=== PATIENT | male | born 1980 | race African-American/Black ===

== ENCOUNTER 2017-05-31 14:51 | Emergency (ER) | payer MEDICAID ==
[2017-05-31 18:04] LABS: Hematocrit 46 % (42-52); Hemoglobin 15.3 g/dl (14.0-18.0); Mean Corpuscular HGB Conc 33 g/dl (31-36); Mean Corpuscular Hemoglobin 29 pg (27-31); Mean Corpuscular Volume 88 fL (80-94); Mean Platelet Volume 8 um3 (7.4-10.4); Red Blood Count 5.24 10^6/ul (4.0-5.4); Red Cell Distribution Width 15 % (10.5-15)
[2017-05-31 18:07] LABS: Urine Bilirubin Negative (Negative); Urine Glucose Negative (Negative); Urine Nitrite Negative (Negative)
[2017-05-31 18:16] LABS: BUN/Creatinine Ratio 8.3 (8-20); C Reactive Protein 27.34 mg/L (< 5.00); Calcium 9.3 mg/dL (8.6-10.3); EGFR African American 88.1 (>60); EGFR Non-African American 68.5 (>60); Globulin 3.2 g/dL (2-4); Potassium 4.6 mmol/L (3.5-5.0); Total Bilirubin 0.5 mg/dL (0.2-1.0); Total Protein 7.2 g/dL (6.4-8.9)
[2017-05-31] MEDS ORDERED: Morphine INJ* 4 MG/ML 1 ML CARPUJECT IV ONE ×2 (18:36)
[2017-05-31] MEDS ORDERED: Ondansetron INJ* 2 MG/ML VIAL IV ONE (18:36)
[2017-05-31] MEDS: Ketorolac INJ* 30 MG/ML 1 ML VIAL IV PUSH ONE ×2 (18:46→19:21)
[2017-05-31] MEDS ORDERED: diPHENhydraMINE IV* 50 MG/ML 1 ml VIAL (BENADRYL) IV ONE (18:52)
[2017-05-31] MEDS ORDERED: diPHENhydraMINE IV* 50 MG/ML 1 ml VIAL (BENADRYL) ONE ×2 (18:53)
--- NOTE | 2017-05-31 19:37 | RAD ---
INDICATION: LEFT lower quadrant and flank pain for 2 weeks. COMPARISON: No relevant prior exams available on the [facility] PACS for comparison. TECHNIQUE: Multidetector CT images were obtained from the lung bases to the ischial tuberosities. Evaluation of the viscera is limited without IV contrast. Multiplanar reformation. REPORT: Unremarkable visualized inferior thorax. Negative for CT abnormality of the unenhanced liver, gallbladder, pancreas, spleen. Negative for CT abnormality of the upper GI or small bowel. Unremarkable retrocecal/infra cecal appendix. Moderate colonic diverticulosis. Moderate perienteric inflammatory change at the level of the distal descending colon seen in association with diverticula most consistent with acute diverticulitis. No perienteric abscess or free air. Only trace LEFT lower quadrant fluid. Negative for hernias. Normal adrenal glands. Unremarkable kidneys ureters, and urinary bladder. Symmetric seminal vesicles. Upper normal 1 cm short axis LEFT common femoral level lymph node. Negative for lymphadenopathy. Normal diameter abdominal aorta and iliac arteries. Physiologic distention of the IVC. Negative for suspicious osseous lesions. IMPRESSION: Acute diverticulitis at the descending colon. No perienteric abscess or resulting bowel obstruction. Follow-up after therapy suggested to assess for resolution.
[2017-05-31] MEDS ORDERED: Ciprofloxacin TAB* 500 MG PO ONE (20:24)
[2017-05-31] MEDS ORDERED: metroNIDAZOLE TAB* 250 MG PO ONE (20:24)
--- NOTE | 2017-05-31 20:28 | ED ---
GI/ HPI - HPI Summary HPI Summary: 36M presents with LLQ pain since last night. He denies any diarrhea or constipation. No nausea or vomiting. admits to anorexia but states that his appetite has been returning. He has never had this pain before. No previous abdominal surgeries. No history of diverticulitis or kidney stones. took advil this morning. pain radiates to left flank pain. no dysuria, hematuira, frequency, or urgency. - History of Current Complaint Chief Complaint: EDAbdPain Time Seen by Provider: 05/31/17 18:21 Stated Complaint: ABD PAIN Pain Intensity: 7 - Allergy/Home Medications Allergies/Adverse Reactions: Allergies Allergy/AdvReac Type Severity Reaction Status Date / Time No Known Allergies Allergy Verified 02/09/16 13:43 PMH/Surg Hx/FS Hx/Imm Hx Endocrine/Hematology History: Denies: Hx Anticoagulant Therapy Respiratory History: Reports: Hx Asthma - Surgical History Surgery Procedure, Year, and Place: ED NOTES: LLQ abdominal pain. passing isadora and had a b.m. without improvement. denies med/surg abdominal hx. [ End ] Infectious Disease History: No Infectious Disease History: Denies: History Other Infectious Disease, Traveled Outside the [place] in Last 30 Days - Family History Known Family History: Positive: Other - ULCERS, CANCER Family History: NON CONTRIBUTORY - Social History Alcohol Use: Occasionally Hx Substance Use: Yes Substance Use Type: Reports: Marijuana Hx Tobacco Use: Yes Smoking Status (MU): Light Every Day Tobacco Smoker Review of Systems Negative: Fever Negative: Chest Pain Negative: Shortness Of Breath Positive: Abdominal Pain. Negative: Vomiting, Diarrhea, Nausea All Other Systems Reviewed And Are Negative: Yes Physical Exam Triage Information Reviewed: Yes Vital Signs On Initial Exam: Initial Vitals Temp Pulse Resp BP Pulse Ox 98.1 F 79 20 140/88 99 05/31/17 14:54 05/31/17 14:54 05/31/17 14:54 05/31/17 14:54 05/31/17 14:54 Vital Signs Reviewed: Yes Appearance: Positive: Pain Distress Skin: Positive: Warm, Dry Head/Face: Positive: Normal Head/Face Inspection Eyes: Positive: Normal, EOMI, CLIF, Conjunctiva Clear ENT: Positive: Normal ENT inspection, Pharynx normal, TMs normal Respiratory/Lung Sounds: Positive: Clear to Auscultation, Breath Sounds Present Cardiovascular: Positive: Normal, RRR Abdomen Description: Positive: Soft, CVA Tenderness (L), Other: - LLQ tenderness , no rebound Bowel Sounds: Positive: Present Musculoskeletal: Positive: Normal Neurological: Positive: Normal - Oliver Coma Scale Coma Scale Total: 15 Diagnostics - Vital Signs Vital Signs Temp Pulse Resp BP Pulse Ox 05/31/17 20:00 76 98 05/31/17 19:30 75 149/91 98 05/31/17 19:23 147/94 05/31/17 19:00 81 99 05/31/17 18:46 22 05/31/17 18:32 77 98 05/31/17 18:30 146/88 05/31/17 14:54 98.1 F 79 20 140/88 99 - Laboratory Lab Results: Lab Results 05/31/17 05/31/17 05/31/17 Range/Units 16:30 16:30 16:30 WBC 9.0 (3.5-10.8) 10^3/ul RBC 5.24 (4.0-5.4) 10^6/ul Hgb 15.3 (14.0-18.0) g/dl Hct 46 (42-52) % MCV 88 (80-94) fL MCH 29 (27-31) pg MCHC 33 (31-36) g/dl RDW 15 (10.5-15) % Plt Count 204 (150-450) 10^3/ul MPV 8 (7.4-10.4) um3 Neut % (Auto) 62.1 (38-83) % Lymph % (Auto) 27.4 (25-47) % [place] % (Auto) 8.1 (1-9) % Eos % (Auto) 1.7 (0-6) % Baso % (Auto) 0.7 (0-2) % Absolute Neuts (auto) 5.6 (1.5-7.7) 10^3/ul Absolute Lymphs (auto) 2.5 (1.0-4.8) 10^3/ul Absolute Monos (auto) 0.7 (0-0.8) 10^3/ul Absolute Eos (auto) 0.2 (0-0.6) 10^3/ul Absolute Basos (auto) 0.1 (0-0.2) 10^3/ul Absolute Nucleated RBC 0.02 10^3/ul Nucleated RBC % 0.2 Sodium 136 (133-145) mmol/L Potassium 4.6 (3.5-5.0) mmol/L Chloride 101 (101-111) mmol/L Carbon Dioxide 33 H (22-32) mmol/L Anion Gap 2 (2-11) mmol/L BUN 10 (6-24) mg/dL Creatinine 1.20 H (0.67-1.17) mg/dL Est GFR ( Amer) 88.1 (>60) Est GFR (Non-Af Amer) 68.5 (>60) BUN/Creatinine Ratio 8.3 (8-20) Glucose 97 (70-100) mg/dL Lactic Acid 0.7 (0.5-2.0) mmol/L Calcium 9.3 (8.6-10.3) mg/dL Total Bilirubin 0.50 (0.2-1.0) mg/dL AST 18 (13-39) U/L ALT 17 (7-52) U/L Alkaline Phosphatase 70 (34-104) U/L C-Reactive Protein 27.34 H (< 5.00) mg/L Total Protein 7.2 (6.4-8.9) g/dL Albumin 4.0 (3.2-5.2) g/dL Globulin 3.2 (2-4) g/dL Albumin/Globulin Ratio 1.3 (1-3) Lipase 26 (11.0-82.0) U/L Urine Color Urine Appearance Urine pH (5-9) Ur Specific [place] (1.010-1.030) Urine Protein (Negative) Urine Ketones (Negative) Urine Blood (Negative) Urine Nitrate (Negative) Urine Bilirubin (Negative) Urine Urobilinogen (Negative) Ur Leukocyte Esterase (Negative) Urine Glucose (Negative) 05/31/17 Range/Units 16:30 WBC (3.5-10.8) 10^3/ul RBC (4.0-5.4) 10^6/ul Hgb (14.0-18.0) g/dl Hct (42-52) % MCV (80-94) fL MCH (27-31) pg MCHC (31-36) g/dl RDW (10.5-15) % Plt Count (150-450) 10^3/ul MPV (7.4-10.4) um3 Neut % (Auto) (38-83) % Lymph % (Auto) (25-47) % [place] % (Auto) (1-9) % Eos % (Auto) (0-6) % Baso % (Auto) (0-2) % Absolute Neuts (auto) (1.5-7.7) 10^3/ul Absolute Lymphs (auto) (1.0-4.8) 10^3/ul Absolute Monos (auto) (0-0.8) 10^3/ul Absolute Eos (auto) (0-0.6) 10^3/ul Absolute Basos (auto) (0-0.2) 10^3/ul Absolute Nucleated RBC 10^3/ul Nucleated RBC % Sodium (133-145) mmol/L Potassium (3.5-5.0) mmol/L Chloride (101-111) mmol/L Carbon Dioxide (22-32) mmol/L Anion Gap (2-11) mmol/L BUN (6-24) mg/dL Creatinine (0.67-1.17) mg/dL Est GFR ( Amer) (>60) Est GFR (Non-Af Amer) (>60) BUN/Creatinine Ratio (8-20) Glucose (70-100) mg/dL Lactic Acid (0.5-2.0) mmol/L Calcium (8.6-10.3) mg/dL Total Bilirubin (0.2-1.0) mg/dL AST (13-39) U/L ALT (7-52) U/L Alkaline Phosphatase (34-104) U/L C-Reactive Protein (< 5.00) mg/L Total Protein (6.4-8.9) g/dL Albumin (3.2-5.2) g/dL Globulin (2-4) g/dL Albumin/Globulin Ratio (1-3) Lipase (11.0-82.0) U/L Urine Color Yellow Urine Appearance Clear Urine pH 6.0 (5-9) Ur Specific [place] 1.021 (1.010-1.030) Urine Protein Negative (Negative) Urine Ketones Negative (Negative) Urine Blood Negative (Negative) Urine Nitrate Negative (Negative) Urine Bilirubin Negative (Negative) Urine Urobilinogen Negative (Negative) Ur Leukocyte Esterase Negative (Negative) Urine Glucose Negative (Negative) Result Diagrams: 05/31/17 16:30 05/31/17 16:30 Lab Statement: Any lab studies that have been ordered have been reviewed, and results considered in the medical decision making process. - CT abd CT Interpretation: Positive (See Comments) - IMPRESSION: Acute diverticulitis at the descending colon. No perienteric abscess or resulting bowel obstruction. Follow-up after therapy suggested to assess for resolution. CT Interpretation Completed By: Radiologist MADYSON Course/Dx - Course Course Of Treatment: 36M presents with LLQ pain since last night. He denies any diarrhea or constipation. No nausea or vomiting. admits to anorexia but states that his appetite has been returning. He has never had this pain before. No previous abdominal surgeries. No history of diverticulitis or kidney stones. took advil this morning. pain radiates to left flank pain. no dysuria, hematuira, frequency, or urgency. on exam tenderness LLQ, CVA tenderness left, labs normal. CT shows diverticulitis. will treat with cipro and flagyl. patient understands and agrees with plan. - Diagnoses Differential Diagnoses - Male: Diverticulosis, Ureteral Calculi, Urinary Tract Infection, Other - diverticulitis Provider Diagnoses: Diverticulitis Discharge - Discharge Plan Condition: Good Disposition: HOME Prescriptions: Ciprofloxacin TAB* [Cipro 500 MG TAB*] 500 mg PO BID #27 tab Metronidazole [Flagyl 500 MG TAB] 500 mg PO BID #27 tab Patient Education Materials: Diverticulitis (ED) Referrals: [facility] [Outside] Additional Instructions: Take ciprofloxacin twice a day for 14 days, first dose given in ED Take Flagyl twice a day for 14 days, first dose given in ED Take Zofran every 6 hours for nausea Take Tylenol or ibuprofen every 6 hours for nausea Follow clear liquid diet until symptoms improve Return to ED if unable to keep anything down, develop fever, or any new or worsening symptoms
[2017-05-31 20:41] VITALS: BP 157/92
== END 2017-05-31 20:43 | disposition home or self-care (01) ==
LOC: ED 14:51
DX: K57.92 Diverticulitis of intestine, part unspecified, without perforation or abscess without bleeding (principal); R10.32 Left lower quadrant pain; F17.210 Nicotine dependence, cigarettes, uncomplicated
CPT/HCPCS: 36415; 74176; 80053; 81003; 83605; 83690; 85025; 86140; 96374; 96375; 99283; A9270-GY; J1200; J1885; J2270; J2405

== ENCOUNTER 2017-08-17 10:54 | Emergency (ER) | payer MEDICAID ==
[2017-08-17] MEDS ORDERED: metroNIDAZOLE IV 500 MG/100ML* 500 MG/100 ML BAG IVPB ONE (11:19)
[2017-08-17] MEDS ORDERED: Ciprofloxacin IV(*) 400 MG in D5W 250 ML BAG* 160 ML IVPB ONE (11:19)
[2017-08-17] MEDS ORDERED: Morphine INJ* 4 MG/ML 1 ML CARPUJECT IV ONE (11:19)
[2017-08-17] MEDS ORDERED: HYDROmorphone INJ* 1 MG/ML CARPUJECT SYRINGE IV SLOW PU ONE (11:38)
[2017-08-17 11:54] LABS: ABS Basophils 0.1 10^3/ul (0-0.2); ABS Eosinophils 0.1 10^3/ul (0-0.6); ABS Lymphocytes 1.8 10^3/ul (1.0-4.8); ABS Monocytes 0.6 10^3/ul (0-0.8); ABS Nucleated RBC 0 10^3/ul; Eosinophil % 0.8 % (0-6); Hematocrit 48 % (42-52); Hemoglobin 16.2 g/dl (14.0-18.0); Lymphocyte % 21.1 % (25-47); Mean Corpuscular HGB Conc 34 g/dl (31-36); Mean Corpuscular Hemoglobin 29 pg (27-31); Mean Corpuscular Volume 86 fL (80-94); Mean Platelet Volume 7 um3 (7.4-10.4); Nucleated Red Blood Cells % 0; Platelet Count 210 10^3/ul (150-450); Red Blood Count 5.59 10^6/ul (4.0-5.4); Red Cell Distribution Width 15 % (10.5-15); White Blood Count 8.5 10^3/ul (3.5-10.8)
[2017-08-17] MEDS ORDERED: Ciprofloxacin 400MG IVPREMIX(* 400 MG/200 ML BAG IVPB ONE (12:00)
[2017-08-17 12:07] LABS: Urine Appearance Clear; Urine Blood Negative (Negative); Urine Color Yellow; Urine Ketones Negative (Negative); Urine Protein Negative (Negative); Urine Specific Gravity 1.023 (1.010-1.030); Urine Urobilinogen Negative (Negative)
[2017-08-17 12:14] LABS: EGFR Non-African American 87.6 (>60)
--- NOTE | 2017-08-17 13:01 | ED ---
Blue Schwab Gabriel, scribed for Sony Portillo MD on 08/17/17 at 1115 . Abdominal Pain/Male - HPI Summary HPI Summary: This patient is a 36 year old M presenting to [facility] with a chief complaint of ABD pain since 08/07/17. The patient rates the pain 7/10 in severity located in the suprapubic region. Patient reports yellow vomiting, fever, right sided shoulder pain (chronic), and nausea. Patient denies urinary symptoms. Two months ago he was diagnosed with diverticulosis and has been trying to avoid foods that would irritate it. He didnt finish his Cipro previously and took a dose at 0700 this morning. The last meal he ate was last night and consisted of soup and hot dogs. - History of Current Complaint Chief Complaint: EDAbdPain Stated Complaint: ABD PAIN Time Seen by Provider: 08/17/17 11:07 Hx Obtained From: Patient Onset/Duration: Lasting Days - 10, Still Present Timing: Constant Severity Initially: Moderate Severity Currently: Moderate Pain Intensity: 7 Pain Scale Used: 0-10 Numeric Location: Diffuse, Discrete At: LLQ, Suprapubic Radiates: No Associated Signs And Symptoms: Positive: Negative - urinary symptoms, Other - yellow vomiting, fever, and nausea - Allergies/Home Medications Allergies/Adverse Reactions: Allergies Allergy/AdvReac Type Severity Reaction Status Date / Time Morphine Allergy Hives Verified 08/17/17 11:32 PMH/Surg Hx/FS Hx/Imm Hx Previously Healthy: No Endocrine/Hematology History: Denies: Hx Anticoagulant Therapy Respiratory History: Reports: Hx Asthma GI History: Reports: Hx Diverticulosis - Surgical History Surgery Procedure, Year, and Place: ED NOTES: LLQ abdominal pain. passing isadora and had a b.m. without improvement. denies med/surg abdominal hx. [ End ] Infectious Disease History: No Infectious Disease History: Denies: History Other Infectious Disease, Traveled Outside the [place] in Last 30 Days - Family History Known Family History: Positive: Other - ULCERS, CANCER Family History: colon cancer - Social History Occupation: Unemployed Alcohol Use: Daily - at night Hx Substance Use: Yes Substance Use Type: Reports: Marijuana Hx Tobacco Use: Yes Smoking Status (MU): Light Every Day Tobacco Smoker Review of Systems Positive: Fever Positive: Abdominal Pain, Vomiting, Nausea Positive: no symptoms reported All Other Systems Reviewed And Are Negative: Yes Physical Exam - Summary Physical Exam Summary: Appearance: Well appearing, no pain distress Skin: warm, dry, reflects adequate perfusion Head/face: normal Eyes: EOMI, CLIF ENT: normal Neck: supple, non-tender Respiratory: CTA, breath sounds present Cardiovascular: RRR, pulses symmetrical Abdomen: soft, mild diffuse tenderness, moderate tenderness at suprapubic and LLQ regions. Bowel: present Musculoskeletal: normal, strength/ROM intact, no CVA tenderness Neuro: normal, sensory motor intact, A&Ox3 Triage Information Reviewed: Yes Vital Signs On Initial Exam: Initial Vitals Temp Pulse Resp BP Pulse Ox 98.4 F 88 20 145/113 97 08/17/17 11:02 08/17/17 11:02 08/17/17 11:02 08/17/17 11:02 08/17/17 11:02 Vital Signs Reviewed: Yes Diagnostics - Vital Signs Vital Signs Temp Pulse Resp BP Pulse Ox 08/17/17 11:02 98.4 F 88 20 145/113 97 - Laboratory Lab Results: Lab Results 08/17/17 08/17/17 08/17/17 Range/Units 11:45 11:45 11:45 WBC 8.5 (3.5-10.8) 10^3/ul RBC 5.59 H (4.0-5.4) 10^6/ul Hgb 16.2 (14.0-18.0) g/dl Hct 48 (42-52) % MCV 86 (80-94) fL MCH 29 (27-31) pg MCHC 34 (31-36) g/dl RDW 15 (10.5-15) % Plt Count 210 (150-450) 10^3/ul MPV 7 L (7.4-10.4) um3 Neut % (Auto) 69.9 (38-83) % Lymph % (Auto) 21.1 L (25-47) % [place] % (Auto) 7.4 (1-9) % Eos % (Auto) 0.8 (0-6) % Baso % (Auto) 0.8 (0-2) % Absolute Neuts (auto) 6.0 (1.5-7.7) 10^3/ul Absolute Lymphs (auto) 1.8 (1.0-4.8) 10^3/ul Absolute Monos (auto) 0.6 (0-0.8) 10^3/ul Absolute Eos (auto) 0.1 (0-0.6) 10^3/ul Absolute Basos (auto) 0.1 (0-0.2) 10^3/ul Absolute Nucleated RBC 0 10^3/ul Nucleated RBC % 0 Sodium 132 L (133-145) mmol/L Potassium 4.3 (3.5-5.0) mmol/L Chloride 99 L (101-111) mmol/L Carbon Dioxide 28 (22-32) mmol/L Anion Gap 5 (2-11) mmol/L BUN 10 (6-24) mg/dL Creatinine 0.97 (0.67-1.17) mg/dL Est GFR ( Amer) 112.6 (>60) Est GFR (Non-Af Amer) 87.6 (>60) BUN/Creatinine Ratio 10.3 (8-20) Glucose 118 H (70-100) mg/dL Lactic Acid 1.0 (0.5-2.0) mmol/L Calcium 9.1 (8.6-10.3) mg/dL Total Bilirubin 0.60 (0.2-1.0) mg/dL AST 17 (13-39) U/L ALT 17 (7-52) U/L Alkaline Phosphatase 76 (34-104) U/L Total Protein 7.7 (6.4-8.9) g/dL Albumin 4.2 (3.2-5.2) g/dL Globulin 3.5 (2-4) g/dL Albumin/Globulin Ratio 1.2 (1-3) Lipase 17 (11.0-82.0) U/L Urine Color Urine Appearance Urine pH (5-9) Ur Specific [place] (1.010-1.030) Urine Protein (Negative) Urine Ketones (Negative) Urine Blood (Negative) Urine Nitrate (Negative) Urine Bilirubin (Negative) Urine Urobilinogen (Negative) Ur Leukocyte Esterase (Negative) Urine WBC (Auto) (Absent) Urine RBC (Auto) (Absent) Ur Squamous Epith Cells (Absent) Urine Bacteria (Absent) Urine Sperm (Absent) Urine Glucose (Negative) Urine Ascorbic Acid (Negative) 08/17/17 Range/Units 11:50 WBC (3.5-10.8) 10^3/ul RBC (4.0-5.4) 10^6/ul Hgb (14.0-18.0) g/dl Hct (42-52) % MCV (80-94) fL MCH (27-31) pg MCHC (31-36) g/dl RDW (10.5-15) % Plt Count (150-450) 10^3/ul MPV (7.4-10.4) um3 Neut % (Auto) (38-83) % Lymph % (Auto) (25-47) % [place] % (Auto) (1-9) % Eos % (Auto) (0-6) % Baso % (Auto) (0-2) % Absolute Neuts (auto) (1.5-7.7) 10^3/ul Absolute Lymphs (auto) (1.0-4.8) 10^3/ul Absolute Monos (auto) (0-0.8) 10^3/ul Absolute Eos (auto) (0-0.6) 10^3/ul Absolute Basos (auto) (0-0.2) 10^3/ul Absolute Nucleated RBC 10^3/ul Nucleated RBC % Sodium (133-145) mmol/L Potassium (3.5-5.0) mmol/L Chloride (101-111) mmol/L Carbon Dioxide (22-32) mmol/L Anion Gap (2-11) mmol/L BUN (6-24) mg/dL Creatinine (0.67-1.17) mg/dL Est GFR ( Amer) (>60) Est GFR (Non-Af Amer) (>60) BUN/Creatinine Ratio (8-20) Glucose (70-100) mg/dL Lactic Acid (0.5-2.0) mmol/L Calcium (8.6-10.3) mg/dL Total Bilirubin (0.2-1.0) mg/dL AST (13-39) U/L ALT (7-52) U/L Alkaline Phosphatase (34-104) U/L Total Protein (6.4-8.9) g/dL Albumin (3.2-5.2) g/dL Globulin (2-4) g/dL Albumin/Globulin Ratio (1-3) Lipase (11.0-82.0) U/L Urine Color Yellow Urine Appearance Clear Urine pH 5.0 (5-9) Ur Specific [place] 1.023 (1.010-1.030) Urine Protein Negative (Negative) Urine Ketones Negative (Negative) Urine Blood Negative (Negative) Urine Nitrate Negative (Negative) Urine Bilirubin Negative (Negative) Urine Urobilinogen Negative (Negative) Ur Leukocyte Esterase Trace H (Negative) Urine WBC (Auto) Trace(0-5/hpf) (Absent) Urine RBC (Auto) Trace(0-2/hpf) (Absent) Ur Squamous Epith Cells Present H (Absent) Urine Bacteria Absent (Absent) Urine Sperm Present H (Absent) Urine Glucose Negative (Negative) Urine Ascorbic Acid * H (Negative) Result Diagrams: 08/17/17 11:45 08/17/17 11:45 Lab Statement: Any lab studies that have been ordered have been reviewed, and results considered in the medical decision making process. Re-Evaluation - Re-Evaluation First Eval Re-Evaluation Time: 12:19 Change: Improved Comment: Patient is light headed due to his pain medication but his pain has improved. The patient was given a dose of IV antibiotics. Abdominal Pain Fem Course/Dx - Course Course Of Treatment: pt with hx of diverticulitis. Didnt complete abx course in May/Nov. Recurrent LLQ pain today. No fever or WBC elevation. Tx with IV abx here. Will not repeat CT at this juncture as pt is well appearing, nl labs etc. Continue outpt abx. May need colonscopy -- discussed this with pt, and there is some family hx of colon CA there. Pt states he is working on getting this done. He is unsure how old remote family member was. No first degree relative with ca. - Diagnoses Provider Diagnoses: Acute diverticulitis, Sprain of right rotator cuff capsule, Non compliance w medication regimen Discharge - Discharge Plan Condition: Good Disposition: HOME Prescriptions: Ciprofloxacin HCl [Cipro 500 MG TAB] 500 mg PO BID #20 tab Metronidazole [Flagyl 500 MG TAB] 500 mg PO TID #30 tab Naproxen [Naproxen 500 mg] 375 mg PO BID #10 tab Ondansetron HCl [Zofran 4 MG TAB] 4 mg PO TID PRN #12 tab PRN Reason: Nausea Patient Education Materials: Diverticulitis (ED) Referrals: [facility] [place] [facility] [Outside] Arline Lester MD [Medical Doctor] - Additional Instructions: Call orthopedics for follow up of your shoulder. For abdomen -- bland diet. Take full 10 day course of antibiotics. Avoid seeded foods. Return with fever, uncontrolled pain, worse or other concerns. The documentation as recorded by the Blue hennessy Gabriel accurately reflects the service I personally performed and the decisions made by me, Sony Portillo MD.
[2017-08-17] MEDS ORDERED: Ondansetron INJ* 2 MG/ML VIAL ONE (14:28)
[2017-08-17] MEDS ORDERED: Famotidine IV* 10 MG/ML 2 ML (20 mg) ONE (14:28)
[2017-08-17] MEDS ORDERED: Ondansetron INJ* 2 MG/ML VIAL IV ONE (14:30)
[2017-08-17] MEDS ORDERED: Famotidine IV* 10 MG/ML 2 ML (20 mg) IV SLOW PU ONE (14:30)
[2017-08-17 15:22] VITALS: BP 152/104
== END 2017-08-17 15:19 | disposition home or self-care (01) ==
LOC: ED 10:54
DX: S43.421A Sprain of right rotator cuff capsule, initial encounter (principal); R10.32 Left lower quadrant pain; F17.210 Nicotine dependence, cigarettes, uncomplicated; K57.92 Diverticulitis of intestine, part unspecified, without perforation or abscess without bleeding; X58.XXXA Exposure to other specified factors, initial encounter; Y93.9 Activity, unspecified; Y92.9 Unspecified place or not applicable
CPT/HCPCS: 36415; 80053; 81003; 81015; 83605; 83690; 85025; 87086; 96374; 96375; 99283; J0744; J1170; J2405; J3490

== ENCOUNTER 2018-05-01 11:00 | Emergency (ER) | payer MEDICAID, OTHER ==
[2018-05-01 12:13] LABS: Urine Appearance Clear; Urine Blood Negative (Negative); Urine Color Yellow; Urine Ketones Negative (Negative); Urine Protein Negative (Negative); Urine Specific Gravity 1.033 (1.010-1.030); Urine Urobilinogen Negative (Negative)
--- OUTSIDE RECORDS SUMMARY | 2018-05-01 12:13 | XMS REPORT ---
:1980 External Reference #:[id number] Author Organization [facility] Address [address] [place] [address] Phone [phone] Care Team Providers Name Role Phone Marker, Monisha Arauz PA-C Care Team Information Forensic Scientist Unavailable Marker, Monisha Arauz PA-C Primary Care Physician Unavailable Payers Type Date Identification Numbers Payment Provider Subscriber Health Maintenance Policy Number: [id number] [facility] (O) Ind. PayID: [id number] [address] [address] [place] [address] Problems Date Description Provider Status Onset: 03/22/2018 Allergy to other foods Tho Woodward MD Active Onset: 03/22/2018 Allergic urticaria Tho Woodward MD Active Family History Date Family Member(s) Problem(s) Comments General Unknown Social History Type Date Description Comments Smoke-Free Home is not smoke-free Pets None Smoking Patient is a current smoker, smokes every day Allergies, Adverse Reactions, Alerts Date Description Reaction Status Severity Comments 03/22/2018 NKDA active Medications Medication Date Status Form Strength Qnty SIG Indications Ordering Provider Albuterol 04/07/ Active Nebulizer (2.5mg/3M 150ml 1 vial Tiffany Sulfate 2017 L) 0.083% every 4h MAGEN Campbell as needed Claritin 03/22/ Active Tablets 10mg 30tab one L50.0 Christopher 2018 s tablet Lucinda Woodward MD by mouth every morning Zyrtec Allergy 03/22/ Active Tablets 10mg 30tab one L50.0 Christopher 2017 s tablet Lucinda Woodward MD by mouth every evening Ondansetron / Active Tablets 4mg Unknown 0000 Dispers Metronidazole / Active Tablets 500mg Unknown 0000 Qvar Redihaler / Active Aerosol 80mcg/Act Marker, 0000 Monisha SAVANAH Arauz Ciprofloxacin / Hx Tablets 500mg Unknown HCL 0000 - 2017 Vital Signs Date Vital Result Comment 04/07/2018 BP Systolic 118 mmHg BP Diastolic 84 mmHg Height 69 inches 5'9" Weight 265.00 lb BMI (Body Mass Index) 39.1 kg/m2 Heart Rate 96 /min Respiratory Rate 16 /min Body Temperature 96.4 F O2 % BldC Oximetry 66 % 03/22/2018 BP Systolic 139 mmHg BP Diastolic 98 mmHg Height 69 inches 5'9" Weight 265.38 lb BMI (Body Mass Index) 39.2 kg/m2 Heart Rate 78 /min Respiratory Rate 1895 /min Body Temperature 98.3 F O2 % BldC Oximetry 92 % Results Description No Information Procedures Date CPT Code Description Status 03/22/2018 48812 Allergy Tests Percutaneous W/ Allergenic Extracts Completed Encounters Type Date Location Provider CPT E/M Dx Office Visit 03/22/2018 10:[place] [address] L50.0 Z91.018 Plan of Care 03/22/2018 - Tho Woodward MDL50.0 Allergic urticariaNew Medication: Claritin 10 mgZyrtec Allergy 10 mgZ91.018 Allergy to other foods
[2018-05-01 12:32] LABS: ABS Basophils 0 10^3/ul (0-0.2); ABS Eosinophils 0.1 10^3/ul (0-0.6); ABS Lymphocytes 2.1 10^3/ul (1.0-4.8); ABS Monocytes 0.5 10^3/ul (0-0.8); ABS Neutrophils 3.3 10^3/ul (1.5-7.7); ABS Nucleated RBC 0 10^3/ul; Eosinophil % 2.1 % (0-6); Hematocrit 43 % (42-52); Hemoglobin 14.7 g/dl (14.0-18.0); Lymphocyte % 34.8 % (25-47); Mean Corpuscular HGB Conc 34 g/dl (31-36); Mean Corpuscular Hemoglobin 29 pg (27-31); Mean Corpuscular Volume 83 fL (80-94); Mean Platelet Volume 7.9 um3 (7.4-10.4); Nucleated Red Blood Cells % 0.3; Platelet Count 210 10^3/ul (150-450); Red Blood Count 5.15 10^6/ul (4.00-5.40); Red Cell Distribution Width 14 % (10.5-15)
[2018-05-01 13:01] LABS: EGFR Non-African American 90.3 (>60)
[2018-05-01] MEDS ORDERED: metFORMIN* 500 MG TAB PO ONE (14:17)
[2018-05-01 14:52] VITALS: BP 135/107
--- NOTE | 2018-05-01 15:24 | ED ---
HPI Diabetic - HPI Summary HPI Summary: Patient is a 37-year-old obese male presenting to the ED with chief complaint of bilateral lower extremity intermittent numbness and tingling and frequent urination over the past 6 months which has been continually worsening. History of hypertension and GERD for which he takes medications. Denies history of diabetes. He states he has a PCP, but has not seen them in several months. Denies any visual changes, headache, chest pain, shortness of breath, syncope or near syncope, abdominal pain. He states he urinated over 15 times yesterday which is not normal for him. States his diet is poor, but he is very active. - History Of Current Complaint Chief Complaint: EDGeneral Time Seen by Provider: 05/01/18 11:15 Hx Obtained From: Patient Onset/Duration: Gradual Onset Timing: Constant Severity Initially: Moderate Severity Currently: Moderate Character: Alert Aggravating: Nothing Associated Signs & Symptoms: Polyphagia, Polyuria Related History: Neuropathy - Risk Factors Cardiac Risk Factors: Negative CVA Risk Factor: Hypertension Serious Bact. Infect. Risk Factors (Meningitis/Sepsis/UTI): Negative - Allergies/Home Medications Allergies/Adverse Reactions: Allergies Allergy/AdvReac Type Severity Reaction Status Date / Time garlic Allergy Hives Verified 05/01/18 11:22 morphine Allergy Hives Verified 05/01/18 11:22 sweet potato Allergy Hives Verified 05/01/18 11:22 Home Medications: Home Medications Albuterol 2.5MG/3ML (0.083%)* [Ventolin 2.5 MG/3 ML NEB.BEBETO*] 2.5 mg INH Q4H PRN 05/01/18 [History Confirmed 05/01/18] Cetirizine* [ZyrTEC 10 MG TAB*] 10 mg PO QPM 05/01/18 [History Confirmed ] LoraTADine TAB(NF) [Claritin 10 MG TAB(NF)] 10 mg PO QAM 05/01/18 [History Confirmed 05/01/18] PMH/Surg Hx/FS Hx/Imm Hx Previously Healthy: Yes Endocrine/Hematology History: Denies: Hx Anticoagulant Therapy Respiratory History: Reports: Hx Asthma GI History: Reports: Hx Diverticulosis - Surgical History Surgery Procedure, Year, and Place: ED NOTES: LLQ abdominal pain. passing isadora and had a b.m. without improvement. denies med/surg abdominal hx. [ End ] - Immunization History Hx Pertussis Vaccination: No Immunizations Up to Date: Yes Infectious Disease History: No Infectious Disease History: Denies: History Other Infectious Disease, Traveled Outside the [place] in Last 30 Days - Family History Known Family History: Positive: Other - ULCERS, CANCER Family History: colon cancer - Social History Occupation: Employed Full-time Lives: With Family Alcohol Use: None Alcohol Amount: 1 drink daily Hx Substance Use: Yes Substance Use Type: Reports: Marijuana Hx Tobacco Use: Yes Smoking Status (MU): Former Smoker Review of Systems Constitutional: Negative Negative: Fever, Chills, Fatigue, Skin Diaphoresis Negative: Palpitations, Chest Pain Negative: Shortness Of Breath, Cough Negative: Abdominal Pain, Vomiting, Diarrhea, Nausea Genitourinary: Negative Positive: no symptoms reported, see HPI, other - polyuria Negative: Arthralgia, Myalgia Skin: Negative Positive: Paresthesia - bilateral lower ext. All Other Systems Reviewed And Are Negative: Yes Physical Exam Triage Information Reviewed: Yes Vital Signs On Initial Exam: Initial Vitals Temp Pulse Resp BP Pulse Ox 98.1 F 83 17 134/118 96 05/01/18 11:10 05/01/18 11:10 05/01/18 11:10 05/01/18 11:10 05/01/18 11:10 Vital Signs Reviewed: Yes Appearance: Positive: Well-Appearing, Well-Nourished Skin: Positive: Warm, Skin Color Reflects Adequate Perfusion Head/Face: Positive: Normal Head/Face Inspection Eyes: Positive: EOMI, CLIF, Conjunctiva Clear Neck: Positive: Supple, No Lymphadenopathy Respiratory/Lung Sounds: Positive: Clear to Auscultation, Breath Sounds Present Cardiovascular: Positive: RRR, Pulses are Symmetrical in both Upper and Lower Extremities Musculoskeletal: Positive: Normal, Strength/ROM Intact Neurological: Positive: Sensory/Motor Intact, Alert, Oriented to Person Place, Time, Speech Normal Psychiatric: Positive: Normal, Affect/Mood Appropriate Diagnostics - Vital Signs Vital Signs Temp Pulse Resp BP Pulse Ox 05/01/18 15:04 99.4 F 84 18 135/107 96 05/01/18 14:51 99.4 F 84 18 135/107 96 05/01/18 11:10 98.1 F 83 17 134/118 96 - Laboratory Lab Results: Lab Results 09/1005/01/18 05/01/18 Range/Units 11:59 12:25 12:25 WBC 6.0 (3.5-10.8) 10^3/ul RBC 5.15 (4.00-5.40) 10^6/ul Hgb 14.7 (14.0-18.0) g/dl Hct 43 (42-52) % MCV 83 (80-94) fL MCH 29 (27-31) pg MCHC 34 (31-36) g/dl RDW 14 (10.5-15) % Plt Count 210 (150-450) 10^3/ul MPV 7.9 (7.4-10.4) um3 Neut % (Auto) 55.2 (38-83) % Lymph % (Auto) 34.8 (25-47) % Bucks % (Auto) 7.7 H (0-7) % Eos % (Auto) 2.1 (0-6) % Baso % (Auto) 0.2 (0-2) % Absolute Neuts (auto) 3.3 (1.5-7.7) 10^3/ul Absolute Lymphs (auto) 2.1 (1.0-4.8) 10^3/ul Absolute Monos (auto) 0.5 (0-0.8) 10^3/ul Absolute Eos (auto) 0.1 (0-0.6) 10^3/ul Absolute Basos (auto) 0 (0-0.2) 10^3/ul Absolute Nucleated RBC 0 10^3/ul Nucleated RBC % 0.3 Sodium 132 L (135-145) mmol/L Potassium 4.5 (3.5-5.0) mmol/L Chloride 96 L (101-111) mmol/L Carbon Dioxide 29 (22-32) mmol/L Anion Gap 7 (2-11) mmol/L BUN 10 (6-24) mg/dL Creatinine 0.94 (0.67-1.17) mg/dL Est GFR ( Amer) 109.3 (>60) Est GFR (Non-Af Amer) 90.3 (>60) BUN/Creatinine Ratio 10.6 (8-20) Glucose 396 H (70-100) mg/dL Hemoglobin A1c (4.0-5.6) % Calcium 9.1 (8.6-10.3) mg/dL Total Bilirubin 0.50 (0.2-1.0) mg/dL AST 18 (13-39) U/L ALT 19 (7-52) U/L Alkaline Phosphatase 131 H (34-104) U/L C-Reactive Protein 19.57 H (<8.01) mg/L Total Protein 7.8 (6.4-8.9) g/dL Albumin 4.0 (3.2-5.2) g/dL Globulin 3.8 (2-4) g/dL Albumin/Globulin Ratio 1.1 (1-3) Urine Color Yellow Urine Appearance Clear Urine pH 6.0 (5-9) Ur Specific [place] 1.033 H (1.010-1.030) Urine Protein Negative (Negative) Urine Ketones Negative (Negative) Urine Blood Negative (Negative) Urine Nitrate Negative (Negative) Urine Bilirubin Negative (Negative) Urine Urobilinogen Negative (Negative) Ur Leukocyte Esterase Negative (Negative) Urine Glucose 3+(>=500 mg/dl) A (Negative) 05/01/18 Range/Units 12:25 WBC (3.5-10.8) 10^3/ul RBC (4.00-5.40) 10^6/ul Hgb (14.0-18.0) g/dl Hct (42-52) % MCV (80-94) fL MCH (27-31) pg MCHC (31-36) g/dl RDW (10.5-15) % Plt Count (150-450) 10^3/ul MPV (7.4-10.4) um3 Neut % (Auto) (38-83) % Lymph % (Auto) (25-47) % Bucks % (Auto) (0-7) % Eos % (Auto) (0-6) % Baso % (Auto) (0-2) % Absolute Neuts (auto) (1.5-7.7) 10^3/ul Absolute Lymphs (auto) (1.0-4.8) 10^3/ul Absolute Monos (auto) (0-0.8) 10^3/ul Absolute Eos (auto) (0-0.6) 10^3/ul Absolute Basos (auto) (0-0.2) 10^3/ul Absolute Nucleated RBC 10^3/ul Nucleated RBC % Sodium (135-145) mmol/L Potassium (3.5-5.0) mmol/L Chloride (101-111) mmol/L Carbon Dioxide (22-32) mmol/L Anion Gap (2-11) mmol/L BUN (6-24) mg/dL Creatinine (0.67-1.17) mg/dL Est GFR ( Amer) (>60) Est GFR (Non-Af Amer) (>60) BUN/Creatinine Ratio (8-20) Glucose (70-100) mg/dL Hemoglobin A1c 9.6 H (4.0-5.6) % Calcium (8.6-10.3) mg/dL Total Bilirubin (0.2-1.0) mg/dL AST (13-39) U/L ALT (7-52) U/L Alkaline Phosphatase (34-104) U/L C-Reactive Protein (<8.01) mg/L Total Protein (6.4-8.9) g/dL Albumin (3.2-5.2) g/dL Globulin (2-4) g/dL Albumin/Globulin Ratio (1-3) Urine Color Urine Appearance Urine pH (5-9) Ur Specific [place] (1.010-1.030) Urine Protein (Negative) Urine Ketones (Negative) Urine Blood (Negative) Urine Nitrate (Negative) Urine Bilirubin (Negative) Urine Urobilinogen (Negative) Ur Leukocyte Esterase (Negative) Urine Glucose (Negative) Result Diagrams: 05/01/18 12:25 05/01/18 12:25 Lab Statement: Any lab studies that have been ordered have been reviewed, and results considered in the medical decision making process. Diabetic Course/Dx - Course Course Of Treatment: During the course treatment, the patient is evaluated for frequent urination as well as bilateral peripheral neuropathy. He has never been worked up for diabetes in the past. He states his diet is poor, however he remains active. Labs obtained which are all WNL except for an elevated glucose at 396. A1c is 9.6. He is started on metformin 500 mg twice a day. He is also given the phone number to care connections and is encouraged to follow-up soon. He is given information for diet and exercise. - Diagnoses Differential Dx: Hyperglycemia, Hyperosmolar State Provider Diagnoses: Diabetes type 2, uncontrolled Discharge - Sign-Out/Discharge Documenting (check all that apply): Patient Departure - Discharge Plan Condition: Stable Disposition: HOME Prescriptions: metFORMIN* [Glucophage 500 MG TAB *] 500 mg PO BID #30 tab Patient Education Materials: Type 2 Diabetes in Adults: New Diagnosis (ED) Referrals: Monisha Andrew PA [Primary Care Provider] - Additional Instructions: [facility]: [phone] Call tomorrow to make an appt Take your first dose of metformin tomorrow AM Types of foods to avoid: Breads, starches, especially any white breads White rice Any type of fruit juice Any type of tomato sauce Any type of cream sauce Processed foods Fruits such as strawberries, peaches, bananas and melons Soda pop/fruit juices/vitamin diez Cereals Fried and fatty foods Fast food Potatoes/potato chips alcohol cookies/ice cream processed cheese Foods to eat: Eggs Avocado's Vegetables blueberries and raspberries Quinoa green apples Grapefruit yogurt (plain and full fat is best) and cottage cheese beans natural nut butters (low sugar) high quality protein/meats leafy greens coconut or almond milk salmon and tuna olive oil or avocado oil kale and cabbage Nuts crystal light feta cheese/goat cheese - Billing Disposition and Condition Condition: STABLE Disposition: Home
== END 2018-05-01 15:04 | disposition home or self-care (01) ==
LOC: ED 11:00
DX: E11.8 Type 2 diabetes mellitus with unspecified complications (principal); I10 Essential (primary) hypertension; Z87.891 Personal history of nicotine dependence; R20.0 Anesthesia of skin
CPT/HCPCS: 36415; 80053; 81003; 83036; 85025; 86140; 99282; A9270-GY

== ENCOUNTER 2018-06-08 07:16 | Emergency (ER) | payer OTHER ==
--- NOTE | 2018-06-08 07:39 | ED ---
Allergic Reaction/Systemic - HPI Summary HPI Summary: This patient is a 37 year old M presenting to [facility] with a chief complaint of a possible allergic reaction that occurred at 0630. As soon as he noticed this he walked to the ED. He c/o nausea, facial swelling, and the feeling of something stuck in his chest when he swallows. When he experienced this sensation he stuck his fingers in his throat and attempted to vomit but he was not successful. Although after forcing himself to vomit he had some throat tightness that has resolved. The patient rates the pain 0/10 in severity. Patient reports fatigue, labored breathing, and diffuse hives (that resolved after 10min). Patient denies CP, and SOB. This morning he took his medication with green tea but he has not eaten. The patient believes the his new medication PIOglitazone may have caused the effects. He states he has had issues in the past where when he tries to swallowing something he has to vomit it back up. He has also had episodes of hives without known causation several times in the past but after allergy test and new medication he states this has resolved. He has not taken Benadryl but did take a daily unknown allergy medication. Hx DM (recently dx), GERD, asthma. He states Dr. Robison ordered tests that he is wondering if he could get today, he is unsure what the tests are. He also states he has a perforated ear drum and is wondering if he could get medication for this - History of Current Complaint Chief Complaint: EDAllergicReaction Time Seen by Provider: 06/08/18 07:26 Hx Obtained From: Patient Onset/Duration: Started hours ago, Still Present Timing: Constant Severity Initially: Moderate Severity Currently: Moderate Pain Intensity: 0 Pain Scale Used: 0-10 Numeric Location: Diffuse Character: Swelling Associated Signs And Symptoms: Positive: Negative - vomiting, CP, and SOB, Other : - fatigue, labored breathing, and diffuse hives (that resolved after 10min) - Allergies/Home Medications Allergies/Adverse Reactions: Allergies Allergy/AdvReac Type Severity Reaction Status Date / Time garlic Allergy Hives Verified 06/08/18 07:22 morphine Allergy Hives Verified 06/08/18 07:22 sweet potato Allergy Hives Verified 06/08/18 07:22 Home Medications: Home Medications Cetirizine HCl [Allergy Relief] 10 mg PO DAILY 06/08/18 [History Confirmed 06/08] Cetirizine* [ZyrTEC 10 MG TAB*] 10 mg PO DAILY 06/08/18 [History Confirmed 06/08] Naproxen TAB* [Naprosyn 250 mg TAB*] 500 mg PO BID PRN 06/08/18 [History Confirmed 06/08/18] Omeprazole CAP* [Prilosec CAP* 20 MG] 20 mg PO DAILY 06/08/18 [History Confirmed 06/08/18] Pioglitazone TAB* [Actos TAB*] 15 mg PO DAILY 06/08/18 [History Confirmed ] metFORMIN* [Glucophage 500 MG TAB *] 500 mg PO BID 06/08/18 [History Confirmed 06/08/18] PMH/Surg Hx/FS Hx/Imm Hx Endocrine/Hematology History: Reports: Hx Diabetes Denies: Hx Anticoagulant Therapy Respiratory History: Reports: Hx Asthma GI History: Reports: Hx Diverticulosis, Hx Gastroesophageal Reflux Disease - Surgical History Surgery Procedure, Year, and Place: ED NOTES: LLQ abdominal pain. passing isadora and had a b.m. without improvement. denies med/surg abdominal hx. [ End ] Infectious Disease History: No Infectious Disease History: Denies: History Other Infectious Disease, Traveled Outside the [place] in Last 30 Days - Family History Known Family History: Positive: Diabetes, Other - ULCERS, CANCER Family History: colon cancer - Social History Lives: With Family Alcohol Use: None Alcohol Amount: 1 drink daily Hx Substance Use: Yes Substance Use Type: Reports: Marijuana Hx Tobacco Use: Yes Smoking Status (MU): Former Smoker Review of Systems Positive: Fatigue. Negative: Fever, Chills Negative: Erythema Positive: Other - sensation of something stuck in his chest . Negative: Sore Throat Negative: Chest Pain Positive: Other - labored breathing . Negative: Shortness Of Breath Positive: Vomiting - induced, mild , Nausea Negative: dysuria, hematuria Negative: Myalgia, Edema Positive: Rash - hives , Other - facial swelling Neurological: Negative - dizziness All Other Systems Reviewed And Are Negative: Yes Physical Exam - Summary Physical Exam Summary: Constitutional: Well-developed, morbidly obese, Alert. (-) Distressed Skin: Warm, Dry HENT: Normocephalic; Atraumatic Eyes: Conjunctiva normal Neck: Musculoskeletal ROM normal neck. (-) JVD, (-) Stridor, (-) Tracheal deviation Cardio: Rhythm regular, rate normal, Heart sounds normal; Intact distal pulses; The pedal pulses are 2+ and symmetric. Radial pulses are 2+ and symmetric. (-) Murmur Pulmonary/Chest wall: Effort normal. (-) Respiratory distress, (-) Rales, pt has inspiratory wheezes Abd: Soft, (-) epigastric tenderness, (-) Distension, (-) Guarding, (-) Rebound Musculoskeletal: (-) Edema Lymph: (-) Cervical adenopathy Neuro: Alert, Oriented x3 Psych: Mood and affect Normal Triage Information Reviewed: Yes Vital Signs On Initial Exam: Initial Vitals Temp Pulse Resp BP Pulse Ox 99.6 F 94 28 162/100 99 06/08/18 07:20 06/08/18 07:20 06/08/18 07:20 06/08/18 07:20 06/08/18 07:20 Vital Signs Reviewed: Yes Diagnostics - Vital Signs Vital Signs Temp Pulse Resp BP Pulse Ox 06/08/18 07:20 99.6 F 94 28 162/100 99 - Laboratory Result Diagrams: 06/08/18 08:46 06/08/18 08:46 Lab Statement: Any lab studies that have been ordered have been reviewed, and results considered in the medical decision making process. - Radiology CXR Radiology Interpretation Completed By: Radiologist - NO EVIDENCE FOR ACTIVE CARDIOPULMONARY DISEASE. ED physician has reviewed this radiology report. - EKG 0900 Cardiac Rate: NL EKG Rhythm: Sinus Rhythm - at 82 BPM EKG Interpretation: j point elevation, no STEMI, Re-Evaluation - Re-Evaluation First Eval Re-Evaluation Time: 10:55 Change: Worse Comment: Pt states he feels shaky after the albuterol treatment. He denies any CP at this time. Allergic Reaction Course/Dx - Course Assessment/Plan: This patient is a 37 year old M presenting to [facility] with a chief complaint of a possible allergic reaction that occurred at 0630. As soon as he noticed this he walked to the ED. He c/o nausea, facial swelling, and the feeling of something stuck in his chest when he swallows. When he experienced this sensation he stuck his fingers in his throat and attempted to vomit but he was not successful. Although after forcing himself to vomit he had some throat tightness that has resolved. The patient rates the pain 0/10 in severity. Patient reports fatigue, labored breathing, and diffuse hives (that resolved after 10min). Patient denies CP and SOB. This morning he took his medication with green tea but he has not eaten. The patient believes the his new medication PIOglitazone may have caused the effects. He states he has had issues in the past where when he tries to swallowing something he has to vomit it back up. He has also had episodes of hives without known causation several times in the past but after allergy test and new medication he states this has resolved. He has not taken Benadryl but did take a daily unknown allergy medication. Hx DM (recently dx), GERD, asthma. He states Dr. Robison ordered tests that he is wondering if he could get today, he is unsure what the tests are. He also states he has a perforated ear drum and is wondering if he could get medication for this. An EKG reveals j point elevation, no STEMI, NSR at 82 BPM. CXR reveals, per radiologist, NO EVIDENCE FOR ACTIVE CARDIOPULMONARY DISEASE. Reviewed Dr Eastman ED visit from 2016 where the patient had a similar episode. Blood work showed blood glucose of 372. In the ED course the patient was given ASA and duoneb. The patients work up in the ED was negative. I suggested to the patient that he gets an outpatient stress test due to multiple cardiac risk factors. Patient will be discharged and follow up from Dr. Mcallister and Dr. Robison. The patient is agreeable with this plan. - Diagnoses Provider Diagnoses: HTN (hypertension), Hyperglycemia, Hives, Chest pain, unspecified Discharge - Sign-Out/Discharge Documenting (check all that apply): Patient Departure - Discharge Plan Condition: Stable Disposition: HOME Patient Education Materials: Chest Pain (ED), Urticaria (ED), Diabetic Hyperglycemia (ED), Hypertension and Diabetes (ED) Referrals: Alfonso Mcallister MD [Medical Doctor] - 2 Days Carl Robison MD [Primary Care Provider] - 2 Days Additional Instructions: I suggest setting up and outpatient stress test through Dr. Mcallister. RETURN TO THE EMERGENCY DEPARTMENT FOR CHANGING OR WORSENING SYMPTOMS - Attestation Statements Document Initiated by Scribe: Yes Documenting Scribe: Pietro Mcarthur Provider For Whom Scribe is Documenting (Include Credential): Gigi Monzon MD Scribe Attestation: I, Pietro Mcarthur, scribed for Gigi Monzon MD on 06/08/18 at 1223.
[2018-06-08] MEDS ORDERED: Albuterol/Ipratropium NEB.SOL* Albuterol 2.5 MG/Ipratropium 0.5 MG 3 ML INH ONE (08:40)
[2018-06-08] MEDS ORDERED: Aspirin 81 mg CHEW TAB* 81 MG TAB.CHEW PO ONE (08:45)
[2018-06-08 08:59] LABS: ABS Basophils 0.1 10^3/ul (0-0.2); ABS Eosinophils 0.1 10^3/ul (0-0.6); ABS Lymphocytes 1.9 10^3/ul (1.0-4.8); ABS Monocytes 0.5 10^3/ul (0-0.8); ABS Neutrophils 2.7 10^3/ul (1.5-7.7); ABS Nucleated RBC 0 10^3/ul; Eosinophil % 1.8 % (0-6); Hematocrit 44 % (42-52); Hemoglobin 15.1 g/dl (14.0-18.0); Lymphocyte % 36.1 % (25-47); Mean Corpuscular HGB Conc 34 g/dl (31-36); Mean Corpuscular Hemoglobin 28 pg (27-31); Mean Corpuscular Volume 83 fL (80-94); Mean Platelet Volume 7.9 um3 (7.4-10.4); Nucleated Red Blood Cells % 0.3; Platelet Count 233 10^3/ul (150-450); Red Blood Count 5.32 10^6/ul (4.00-5.40); Red Cell Distribution Width 14 % (10.5-15); White Blood Count 5.2 10^3/ul (3.5-10.8)
[2018-06-08 09:13] LABS: EGFR Non-African American 87.1 (>60); Uric Acid 4.5 mg/dL (4.4-7.6)
--- NOTE | 2018-06-08 09:15 | RAD ---
INDICATION: Wheezing. COMPARISON: Comparison is made with a prior study from February 09, 2016. TECHNIQUE: Dual-energy PA and lateral views of the chest were obtained. FINDINGS: The heart is within normal limits in size. Mediastinal and hilar contours appear within normal limits. The lungs are clear. No pleural effusion is present. IMPRESSION: NO EVIDENCE FOR ACTIVE CARDIOPULMONARY DISEASE.
[2018-06-08 13:07] VITALS: BP 135/103
== END 2018-06-08 13:05 | disposition home or self-care (01) ==
LOC: ED 07:16
DX: I10 Essential (primary) hypertension (principal); E11.65 Type 2 diabetes mellitus with hyperglycemia; Z79.84 Long term (current) use of oral hypoglycemic drugs; L50.9 Urticaria, unspecified; R07.89 Other chest pain; J45.909 Unspecified asthma, uncomplicated; K21.9 Gastro-esophageal reflux disease without esophagitis; Z88.5 Allergy status to narcotic agent; Z87.891 Personal history of nicotine dependence
CPT/HCPCS: 36415; 71046; 80053; 80061; 83605; 83880; 84484; 84550; 85025; 93005; 99283; A9270-GY

== ENCOUNTER 2018-11-13 09:59 | Emergency (ER) | payer BC, MEDICAID ==
[2018-11-13] MEDS ORDERED: NS 0.9% 1000 ML** 2,000 ML IV ONE (10:23)
--- NOTE | 2018-11-13 10:27 | ED ---
HPI Diabetic - HPI Summary HPI Summary: This pt is a 38 y/o male, with type 2 DM, presenting to [facility] c/o tingling in bilateral legs for the past few days. Pt reports pt was diagnosed with diabetes in 2017 and notes he has not "been doing the best with it." He states his blood glucose have been running above 350. He presents with bilateral leg tingling from the knees down, which is worse at night time. Additionally notes polyuria, blurred vision. He was diagnosed with influenza 1 week ago. PMHx: DM, asthma. Pt admits to marijuana daily and alcohol weekly. Denies tobacco use. - History Of Current Complaint Chief Complaint: EDExtremityLower Time Seen by Provider: 11/13/18 10:11 Hx Obtained From: Patient Onset/Duration: Lasting Days, Still Present Timing: Days Severity Currently: Moderate Character: Alert, Other - tingling in legs Aggravating: Non-compliant Alleviating: Nothing Associated Signs & Symptoms: Polyuria Related History: DM II - Allergies/Home Medications Allergies/Adverse Reactions: Allergies Allergy/AdvReac Type Severity Reaction Status Date / Time garlic Allergy Hives Verified 06/08/18 07:22 morphine Allergy Hives Verified 06/08/18 07:22 sweet potato Allergy Hives Verified 06/08/18 07:22 PMH/Surg Hx/FS Hx/Imm Hx Endocrine/Hematology History: Reports: Hx Diabetes Denies: Hx Anticoagulant Therapy Respiratory History: Reports: Hx Asthma GI History: Reports: Hx Diverticulosis, Hx Gastroesophageal Reflux Disease - Surgical History Surgery Procedure, Year, and Place: ED NOTES: LLQ abdominal pain. passing isadora and had a b.m. without improvement. denies med/surg abdominal hx. [ End ] Infectious Disease History: No Infectious Disease History: Denies: History Other Infectious Disease, Traveled Outside the [place] in Last 30 Days - Family History Known Family History: Positive: Diabetes, Other - ULCERS, CANCER Family History: colon cancer - Social History Alcohol Use: Weekly Alcohol Amount: 1 drink daily Hx Substance Use: Yes Substance Use Type: Reports: Marijuana Hx Tobacco Use: Yes Smoking Status (MU): Former Smoker Review of Systems Negative: Fever Positive: Blurred Vision Genitourinary: Other - POS: polyuria Positive: Paresthesia - in bilateral legs All Other Systems Reviewed And Are Negative: Yes Physical Exam - Summary Physical Exam Summary: VITAL SIGNS: Reviewed. GENERAL: Patient is a well-developed and nourished male who is lying comfortable in the stretcher. Patient is not in any acute respiratory distress. HEAD AND FACE: No signs of trauma. No ecchymosis, hematomas or skull depressions. No sinus tenderness. EYES: PERRLA, EOMI x 2, No injected conjunctiva, no nystagmus. EARS: Hearing grossly intact. Ear canals and tympanic membranes are within normal limits. MOUTH: Oropharynx within normal limits. NECK: Supple, trachea is midline, no adenopathy, no JVD, no carotid bruit, no c- spine tenderness, neck with full ROM. CHEST: Symmetric, no tenderness at palpation LUNGS: Clear to auscultation bilaterally. No wheezing or crackles. CVS: Regular rate and rhythm, S1 and S2 present, no murmurs or gallops appreciated. ABDOMEN: Soft, non-tender. No signs of distention. No rebound, no guarding, and no masses palpated. Bowel sounds are normal. EXTREMITIES: FROM in all major joints, no edema, no cyanosis or clubbing. NEURO: Alert and oriented x 3. No acute neurological deficits. Speech is normal and follows commands. Decreased sensation on both legs bilaterally from the knees down to the feet. SKIN: Dry and warm Triage Information Reviewed: Yes Vital Signs On Initial Exam: Initial Vitals Temp Pulse Resp BP Pulse Ox 97.8 F 89 18 142/106 96 11/13/18 10:04 11/13/18 10:04 11/13/18 10:04 11/13/18 10:04 11/13/18 10:04 Vital Signs Reviewed: Yes Diagnostics - Vital Signs Vital Signs Temp Pulse Resp BP Pulse Ox 11/13/18 10:04 97.8 F 89 18 142/106 96 - Laboratory Result Diagrams: 11/13/18 10:55 11/13/18 10:55 Lab Statement: Any lab studies that have been ordered have been reviewed, and results considered in the medical decision making process. Re-Evaluation - Re-Evaluation First Eval Re-Evaluation Time: 13:30 Change: Improved Comment: Pt is feeling better. I reviewed the lab results with the pt and was educated on type 2 diabetes. He will be discharged home with follow up from his PCP. Diabetic Course/Dx - Course Assessment/Plan: Patient is a 38-year-old male who presents to the emergency department with chief complaint of having numbness and tingling in both feet. The patient reports that he is a diabetic and he is unable to control his sugars and usually runs about 350 and up. Now he has developed the above symptoms. The neurological exam is within normal limits except for decreased sensation in both lower extremities possibly secondary to diabetic neuropathy. Blood work without any significant abnormality sent for sodium 132, chloride 97 , glucose 418, CRP 152, urinalysis is negative for UTI. In the ED course the patient was given 2 L IV fluids and he was given 2 units of insulin. Right now the fingerstick is 265. The patient reports that he is feeling better and he wants to go home. The patient was instructed that he needs to follow with the diet for diabetes, increase his water intake, and follow-up with the primary care physician for better control of his sugars. The patient understands and agrees. The patient will continue taking medication as indicated. I discussed all the findings and test results with the patient. Patient was instructed to return to the emergency room immediately if any of the symptoms return worsens. Plan of care was discussed with the patient and understands and agrees. All questions were answered at patient satisfaction. There were no further complaints or concerns. Lung exam before discharge: CTA B/L. Good air exchange. No wheezing or crackles heard. CVS: S1 and S2 present. No murmurs appreciated. Patient is alert and oriented x 3. Patient is hemodynamically stable. Patient will be discharged home with follow up from his PCP in the next 2-3 days. - Diagnoses Provider Diagnoses: Uncontrolled diabetes mellitus, Diabetic neuropathy Discharge - Sign-Out/Discharge Documenting (check all that apply): Patient Departure - Discharge home Patient Received Moderate/Deep Sedation with Procedure: No - Discharge Plan Condition: Stable Disposition: HOME Patient Education Materials: Diabetic Hyperglycemia (ED) Forms: *Work Release Referrals: Paul Doss MD [Primary Care Provider] - Additional Instructions: FOLLOW UP WITH YOUR PRIMARY CARE PROVIDER IN 2-3 DAYS. RETURN TO THE ED FOR ANY NEW OR WORSENING SYMPTOMS. - Billing Disposition and Condition Condition: STABLE Disposition: Home - Attestation Statements Document Initiated by Scribe: Yes Documenting Scribe: Cathy Larsen Provider For Whom Scribe is Documenting (Include Credential): Wilberto Cooney MD Scribe Attestation: I, Cathy Larsen, scribed for Wilberto Cooney MD on 11/13/18 at 1843. Scribe Documentation Reviewed: Yes Provider Attestation: The documentation as recorded by the scribeCathy accurately reflects the service I personally performed and the decisions made by me, Wilberto Cooney MD Status of Scribe Document: Viewed
--- OUTSIDE RECORDS SUMMARY | 2018-11-13 10:27 | XMS REPORT | Continuity of Care Document ---
:1980 External Reference #:[id number] Author Name Kita Chavez, MAGEN Address [address] [facility] [place] [address] Care Team Providers Name Role Phone Shantel Bradford M.D. Care Team Information Packaging Line Attendant Unavailable Shantel Bradford M.D. Primary Care Physician Unavailable Payers Date Identification Numbers Payment Provider Subscriber Effective: 2018 Policy Number: [id number] /[facility] Mathew Fraser PayID: [id number] [address] [address] [place] [address] Policy Number: [id number] Medicaid [place] Mathew Fraser PayID: [id number] [address] [place] [address] Effective: 2018 Policy Number: [id number] [facility] Mathew Fraser Expires: 2018 PayID: [id number] [address] [address] [place] [address] Advance Directives Description No Information Available Problems Description No Information Family History Description No Information Available Social History Type Date Description Comments Sex Unknown Tobacco Use Start: Unknown Nonsmoker Smoking Status Reviewed: 11/06/18 Nonsmoker Allergies, Adverse Reactions, Alerts Date Description Reaction Status Severity Comments 07/27/2018 Morphine Active 07/27/2018 Garlic Powder Active 07/27/2018 Sweet Potatoes Active Medications Medication Date Status Form Strength Qnty SIG Indications Ordering Provider Tamiflu 11/06/ Active Capsules 75mg 10caps 1 by mouth R50.9 Kita Artis 2019 twice a Scott, day HOSPITALIST Omeprazole 10/27/ Active Capsules DR 20mg 30caps 1 by mouth Paul Douglas 2019 every day MD [place]am Glipizide ER 08/03/ Active Tablets ER 10mg 90tabs one by Paul Douglas 2018 24HR mouth in [place] castelan the MD morning Metformin HCL / Active Tablets 500mg 360tab 2 tabs Paul Douglas 0000 s twice a Selam day , Claritin / Active Capsules 10mg use 1 by Unknown 0000 mouth q.d Albuterol / Active Nebulizer 1.25mg/3ML as Unknown Sulfate 0000 directed Omeprazole / Hx Capsules DR 10mg 1 by mouth Shantel 0000 - every day Lanse, 10/27/ M.DHaylee 2019 Immunizations Description No Information Available Vital Signs Date Vital Result Comment 11/06/2018 10:01am BP Systolic 120 mmHg BP Diastolic 60 mmHg Heart Rate 84 /min Body Temperature 98.1 F Respiratory Rate 18 /min Height 68.75 inches 5'8.75" 10/02/2018 5:09pm BP Systolic 120 mmHg BP Diastolic 80 mmHg Heart Rate 68 /min Body Temperature 98.0 F Respiratory Rate 18 /min Height 68.75 inches 5'8.75" Weight 257.00 lb BMI (Body Mass Index) 38.2 kg/m2 07/27/2018 12:05pm BP Systolic 132 mmHg BP Diastolic 80 mmHg Heart Rate 76 /min Body Temperature 97.9 F Respiratory Rate 17 /min Height 68.75 inches 5'8.75" Weight 257.38 lb BMI (Body Mass Index) 38.3 kg/m2 Right Visual Acuity Distance 20/25 Left Visual Acuity Distance 20/25 Results Test Date Facility Test Result H/L Range Note Influenza A&B-fma 11/06/2018 [facility] Influenza A neg (607)- - Influenza B pos Laboratory test finding 11/06/2018 [facility] Quickstrep neg Negative (607)- - Glucose Fingerstick (a) 362 mg/dL High 70-105 Procedures Date Code Description Status 10/02/2018 06616 Remove Impact Cerumen Irrigati Completed Encounters Type Date Location Provider Dx Diagnosis Office Visit 10/02/2018 Main Office Kita Artis H61.21 Impacted cerumen, 5:20p MAGEN Chavez right ear Office Visit 07/27/2018 Main Office Paul Douglas E11.8 Type 2 diabetes 11:30a MD [place] mellitus with unspecified complications Plan of Treatment 11/06/2018 - Kita Chavez, NPR50.9 Fever, unspecifiedNew Medication: Tamiflu 75 mg - 1 by mouth twice a dayComments:Tylenol or Ibuprofen for fever/ pain No work until fever free x 24 hours.E11.8 Type 2 diabetes mellitus with unspecified complicationsComments:we need closer follow up on this - a1c over range, bring glucometer to next visit we can teach you to use ityou're doing great working on losing weight and staying active but your blood sugars are really high right nowFollow up:next week with Michele DossComments:~B_~U_ Medication Management~b_~u_ Patient Understands medications he 's taking? Yes No Are there Barriers to Adherence? Yes No Has the patient been asked about herbal supplements and therapies, and OTC meds? Yes No ~B_~U_Care Plan~b_~u_1. Patient has been queried about patient's goals/ preferences and functional/lifestyle goals at relevant visits. If relevant, describe: na2. Treatment goals as explained to the patient: above3. Are there barriers to meeting treatment goals? Yes No If Yes, please describe:4. Self-Management goals as described to the patient:Yes NoAs always, we strongly encourage a healthy diet and making physical activity a part of your every day life. If you have questions about how or where to start, please contact the office.Follow up:Please schedule a full annual visit at your earliest convenience
[2018-11-13 11:12] LABS: ABS Basophils 0.1 10^3/ul (0-0.2); ABS Eosinophils 0.1 10^3/ul (0-0.6); ABS Lymphocytes 2.2 10^3/ul (1.0-4.8); ABS Monocytes 0.7 10^3/ul (0-0.8); ABS Neutrophils 5.3 10^3/ul (1.5-7.7); ABS Nucleated RBC 0 10^3/ul; Eosinophil % 1.6 %; Hematocrit 47 % (36-46); Hemoglobin 15.6 g/dL (14.0-18.0); Lymphocyte % 26.1 %; Mean Corpuscular HGB Conc 33 g/dL (31-36); Mean Corpuscular Hemoglobin 28 pg (27-31); Mean Corpuscular Volume 83 fL (80-94); Mean Platelet Volume 8.3 fL (7.4-10.4); Nucleated Red Blood Cells % 0.2; Platelet Count 217 10^3/uL (150-450); Red Blood Count 5.63 10^6 /uL (4.18-5.48); Red Cell Distribution Width 14 % (10.5-15); White Blood Count 8.4 10^3/uL (3.5-10.8)
[2018-11-13 11:37] LABS: Albumin 4.1 g/dL (3.2-5.2); Albumin/Globulin Ratio 1.2 (1-3); BUN/Creatinine Ratio 7.1 (8-20); C Reactive Protein 152.12 mg/L (<8.01); Calcium 9.4 mg/dL (8.6-10.3); EGFR African American 123.7 (>60); EGFR Non-African American 102.3 (>60); Globulin 3.3 g/dL (2-4); Potassium 4.8 mmol/L (3.5-5.0); Total Bilirubin 0.6 mg/dL (0.2-1.0); Total Protein 7.4 g/dL (6.4-8.9)
[2018-11-13 11:41] LABS: Urine Appearance Clear; Urine Bilirubin Negative (Negative); Urine Blood Negative (Negative); Urine Color Straw; Urine Glucose 3+(>=500 mg/dL) (Negative); Urine Ketones 1+ (Negative); Urine Nitrite Negative (Negative); Urine Protein Negative (Negative); Urine Specific Gravity 1.032 (1.010-1.030); Urine Urobilinogen Negative (Negative)
[2018-11-13] MEDS ORDERED: Insulin REGULAR(*) 1 UNITS UNIT SUBCUT ONE (12:01)
[2018-11-13 13:19] VITALS: BP 122/68
== END 2018-11-13 13:24 | disposition home or self-care (01) ==
LOC: ED 09:59
DX: H53.8 Other visual disturbances (principal); Z87.891 Personal history of nicotine dependence; E11.65 Type 2 diabetes mellitus with hyperglycemia; E11.40 Type 2 diabetes mellitus with diabetic neuropathy, unspecified; K21.9 Gastro-esophageal reflux disease without esophagitis; Z88.6 Allergy status to analgesic agent
CPT/HCPCS: 36415; 80053; 81003; 82550; 82803; 85025; 86140; 96360; 99283

== ENCOUNTER 2018-11-30 10:34 | Emergency (ER) | payer BC, MEDICAID ==
--- NOTE | 2018-11-30 10:43 | ED ---
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 Pt was at work, ate a cup of peaches, drank unsweetened black tea and 2 glasses of water. He could feel his face become swollen. Associated sx: diffuse hives, nausea. Denies dysphagia. He was given epi LATHE OPERATOR. En route, EMS found his POC glucose: 574. He was recently dx with DMII but has not taken any insulin injections due to the cost. He has seen an medical representative, who said he was allergic to garlic and sweet potatoes, morphine. He thinks he has an allergy to other things as well, and not only food related. He says he can be sitting in a park or in the car, drink some water, and break out in hives. He takes two medications for his allergies, but has not taken them for the past two weeks. Pt works at [employer] and is insured, but is having some financial issues. He's been having increased stress recently. He recently moved to [place] from [place]. - History of Current Complaint Chief Complaint: EDAllergicReaction Time Seen by Provider: 11/30/18 10:42 Hx Obtained From: Patient Onset/Duration: Sudden Onset, Still Present - allergic rxn - resolved, elevated glucose - present Timing: Constant Severity Initially: Mild Severity Currently: None Pain Intensity: 0 Pain Scale Used: 0-10 Numeric Character: Swelling - facial, Hives - diffuse Alleviating Factor(s): Epinephrine Associated Signs And Symptoms: Positive: Nausea, Other: - pos: hives, elevated glucose. neg: dysphagia - Allergies/Home Medications Allergies/Adverse Reactions: Allergies Allergy/AdvReac Type Severity Reaction Status Date / Time garlic Allergy Hives Verified 06/08/18 07:22 morphine Allergy Hives Verified 06/08/18 07:22 sweet potato Allergy Hives Verified 06/08/18 07:22 PMH/Surg Hx/FS Hx/Imm Hx Previously Healthy: No Endocrine/Hematology History: Reports: Hx Diabetes Denies: Hx Anticoagulant Therapy Respiratory History: Reports: Hx Asthma GI History: Reports: Hx Diverticulosis, Hx Gastroesophageal Reflux Disease - Surgical History Surgery Procedure, Year, and Place: ED NOTES: LLQ abdominal pain. passing isadora and had a b.m. without improvement. denies med/surg abdominal hx. [ End ] Infectious Disease History: No Infectious Disease History: Denies: History Other Infectious Disease, Traveled Outside the [place] in Last 30 Days - Family History Known Family History: Positive: Diabetes, Other - ULCERS, CANCER Family History: colon cancer - Social History Occupation: Unemployed Lives: Dormitory/Roommates Alcohol Use: Weekly Alcohol Amount: 1 drink daily Hx Substance Use: Yes Substance Use Type: Reports: Marijuana Substance Use Comment - Amount & Last Used: daily Hx Tobacco Use: Yes Smoking Status (MU): Former Smoker Review of Systems Positive: Other - neg: dysphagia Positive: Other - pos: elevated blood sugar Positive: Nausea Musculoskeletal: Other - pos: facial swelling Skin: Other - pos: diffuse hives All Other Systems Reviewed And Are Negative: Yes Physical Exam - Summary Physical Exam Summary: GENERAL: Patient is a well-developed and nourished MALE who is lying comfortable in the stretcher. Patient is not in any acute respiratory distress. HEAD AND FACE: Normocephalic except bilateral periorbital edema EYES: PERRLA, EOMI x 2 EARS: Hearing grossly intact. MOUTH: Oropharynx within normal limits. NECK: Supple, trachea is midline, no adenopathy, no JVD, no carotid bruit. CHEST: Symmetric, no tenderness at palpation LUNGS: Clear to auscultation bilaterally. No wheezing or crackles. CVS: Regular rate and rhythm, S1 and S2 present, no murmurs or gallops appreciated. ABDOMEN: Soft, non-tender. Bowel sounds are normal. No abdominal abnormal pulsations. EXTREMITIES: Full ROM in all major joints, no edema, no cyanosis or clubbing. NEURO: Alert and oriented x 3. No acute neurological deficits. Speech is normal and follows commands. SKIN: Dry and warm Triage Information Reviewed: Yes Vital Signs On Initial Exam: Initial Vitals Temp Pulse Resp BP Pulse Ox 99.2 F 75 18 151/80 99 11/30/18 10:34 11/30/18 10:34 11/30/18 10:34 11/30/18 10:34 11/30/18 10:34 Vital Signs Reviewed: Yes Diagnostics - Vital Signs Vital Signs Temp Pulse Resp BP Pulse Ox 11/30/18 10:34 99.2 F 75 18 151/80 99 - Laboratory Result Diagrams: 11/30/18 11:54 11/30/18 11:54 Lab Statement: Any lab studies that have been ordered have been reviewed, and results considered in the medical decision making process. Re-Evaluation - Re-Evaluation 1 Re-Evaluation Time: 13:21 Change: Improved Comment: Discussing results with pt. Pt has an epi-pen but is unsure if it is . Pt has Benadryl at home. Allergic Reaction Course/Dx - Course Course Of Treatment: Pt is a 38 y/o M presenting s/p allergic reaction and POC glucose: 574 by EMS. Workup is remarkable for POC glucse > 444. I discussed results with patient and he reports feeling better. Pt has Benadryl at home, will prescribe epi-pen and prednisone. The patient will be discharged. He is hemodynamically stable and safe for discharge. Strict return precautions given and he will otherwise follow up with his PCP. - Diagnoses Provider Diagnoses: Allergic reaction, Hyperglycemia Discharge - Sign-Out/Discharge Documenting (check all that apply): Patient Departure - DC Patient Received Moderate/Deep Sedation with Procedure: No - Discharge Plan Condition: Stable Disposition: HOME Prescriptions: EPINEPHrine [Epipen 2-Oli] 0.3 mg IM ONCE #1 inj predniSONE [Prednisone 20 MG TAB] 20 mg PO DAILY #4 tablet Patient Education Materials: Prednisone (By mouth), Epinephrine (By injection) , Diabetic Hyperglycemia (ED), Hyperlipidemia (DC), General Allergic Reaction ( ED) Referrals: Paul Doss MD [Primary Care Provider] - 2 Days Additional Instructions: Follow up with your primary care physician in 1-3 days. RETURN TO THE EMERGENCY DEPARTMENT FOR CHANGING OR WORSENING SYMPTOMS. - Billing Disposition and Condition Condition: STABLE Disposition: Home - Attestation Statements Document Initiated by Scribe: Yes Documenting Scribe: Laurel Benitez Provider For Whom Sal is Documenting (Include Credential): Dr. Kings Camarena MD Scribe Attestation: I, jenny Andradeibed for Dr. Kings Camarena MD on 11/30/18 at 2112. Scribe Documentation Reviewed: Yes Provider Attestation: The documentation as recorded by the Laurel hennessy accurately reflects the service I personally performed and the decisions made by me, Dr. Kings Camarena MD Status of Scribe Document: Viewed
[2018-11-30] MEDS ORDERED: NS 0.9% 1000 ML** 1,000 ML IV ONE (11:11)
[2018-11-30] MEDS ORDERED: diPHENhydraMINE IV* 25 MG in NS 0.9% 50 ML* 50 ML IVPB ONE (11:12)
[2018-11-30] MEDS ORDERED: methylPREDNISolone 125 MG* 2 ML VIAL IV ONE (11:12)
[2018-11-30] MEDS ORDERED: Ondansetron INJ* 2 MG/ML VIAL IV ONE (11:13)
[2018-11-30] MEDS ORDERED: Insulin REGULAR(*) 1 UNITS UNIT IV PUSH ONE (11:14)
[2018-11-30 12:05] LABS: ABS Basophils 0.1 10^3/ul (0-0.2); ABS Eosinophils 0 10^3/ul (0-0.6); ABS Lymphocytes 1.2 10^3/ul (1.0-4.8); ABS Monocytes 0.4 10^3/ul (0-0.8); ABS Neutrophils 3.3 10^3/ul (1.5-7.7); ABS Nucleated RBC 0 10^3/ul; Eosinophil % 0.9 %; Hematocrit 45 % (36-46); Hemoglobin 14.7 g/dL (14.0-18.0); Lymphocyte % 24.2 %; Mean Corpuscular HGB Conc 33 g/dL (31-36); Mean Corpuscular Hemoglobin 28 pg (27-31); Mean Corpuscular Volume 84 fL (80-94); Mean Platelet Volume 8.2 fL (7.4-10.4); Nucleated Red Blood Cells % 0.1; Platelet Count 216 10^3/uL (150-450); Red Blood Count 5.34 10^6 /uL (4.18-5.48); Red Cell Distribution Width 14 % (10.5-15)
[2018-11-30 12:23] LABS: Albumin 3.6 g/dL (3.2-5.2); Albumin/Globulin Ratio 1.2 (1-3); Calcium 8.6 mg/dL (8.6-10.3); EGFR African American 127.2 (>60); EGFR Non-African American 105.1 (>60); Total Bilirubin 0.4 mg/dL (0.2-1.0); Total Protein 6.6 g/dL (6.4-8.9)
[2018-11-30 12:48] LABS: Potassium 5.2 mmol/L (3.5-5.0)
[2018-11-30 13:44] VITALS: BP 145/96
[2018-12-01] MEDS ORDERED: Patiromer POWDER* 8.4 GM PAK PO ONE (13:23)
== END 2018-11-30 13:42 | disposition home or self-care (01) ==
LOC: ED 10:34
DX: T78.40XA Allergy, unspecified, initial encounter (principal); X58.XXXA Exposure to other specified factors, initial encounter; E11.65 Type 2 diabetes mellitus with hyperglycemia; J45.909 Unspecified asthma, uncomplicated; Z88.5 Allergy status to narcotic agent
CPT/HCPCS: 36415; 80053; 82803; 85025; 96365; 96375; 99284; A9270-GY; J1200; J2405; J2930

== ENCOUNTER 2019-01-18 08:58 | Emergency (ER) | payer BC, MEDICAID ==
[2019-01-18] MEDS ORDERED: NS 0.9% 1000 ML** 1,000 ML IV ONE ×2 (09:29→10:05)
[2019-01-18] MEDS ORDERED: predniSONE TAB* 20 MG PO ONE (09:31)
[2019-01-18] MEDS ORDERED: Albuterol/Ipratropium NEB.SOL* Albuterol 2.5 MG/Ipratropium 0.5 MG 3 ML INH ONE (09:31)
--- NOTE | 2019-01-18 09:32 | ED ---
Shortness of Breath - HPI Summary HPI Summary: Patient is a 38-year-old male who presents emergency department for numerous complaints. Patient has a history of uncontrolled diabetes, asthma and GERD. Pt. states that his glucose has been running the 400's at home. Pt. states he is on metformin and Lantus at night. Pt. states he left his Lantus in the hot car and does not feel it has been working recently. Pt.'s main complaint today is cough, SOB and wheezing. Pt. taking albuterol at home without improvement. Pt. notes worsening cough and feeling feverish. Pt. notes decreased appetite and vomiting as well. Denies CP. Sxs are moderate in severity. No current modifying factors. - History of Current Complaint Chief Complaint: EDShortnessOfBreath Time Seen by Provider: 01/18/19 09:23 - Allergy/Home Medications Allergies/Adverse Reactions: Allergies Allergy/AdvReac Type Severity Reaction Status Date / Time garlic Allergy Hives Verified 01/18/19 09:02 morphine Allergy Hives Verified 01/18/19 09:02 sweet potato Allergy Hives Verified 01/18/19 09:02 Home Medications: Home Medications EPINEPHrine [Epipen 2-Oli] 0.3 mg IM ONCE PRN 01/18/19 [History Confirmed ] Insulin GLARGINE(*) [Lantus(*)] 50 units SUBCUT DAILY 01/18/19 [History Confirmed 01/18/19] LoraTADine TAB(NF) [Claritin 10 MG TAB(NF)] 10 mg PO QAM 01/18/19 [History Confirmed 01/18/19] PMH/Surg Hx/FS Hx/Imm Hx Previously Healthy: Yes Endocrine/Hematology History: Reports: Hx Diabetes Denies: Hx Anticoagulant Therapy Respiratory History: Reports: Hx Asthma GI History: Reports: Hx Diverticulosis, Hx Gastroesophageal Reflux Disease - Surgical History Surgery Procedure, Year, and Place: ED NOTES: LLQ abdominal pain. passing isadora and had a b.m. without improvement. denies med/surg abdominal hx. [ End ] Infectious Disease History: No Infectious Disease History: Denies: History Other Infectious Disease, Traveled Outside the [place] in Last 30 Days - Family History Known Family History: Positive: Diabetes, Other - ULCERS, CANCER, Non- Contributory Family History: colon cancer - Social History Occupation: Employed Full-time Lives: With Family Alcohol Use: Daily Alcohol Amount: 1 drink daily Hx Substance Use: Yes Substance Use Type: Reports: Marijuana Substance Use Comment - Amount & Last Used: daily Hx Tobacco Use: Yes Smoking Status (MU): Former Smoker Review of Systems Positive: Fever, Chills Eyes: Negative Positive: Epistaxis Cardiovascular: Negative Negative: Palpitations, Chest Pain Positive: Shortness Of Breath, Cough Positive: Abdominal Pain. Negative: Vomiting, Diarrhea, Nausea Positive: dysuria Positive: Myalgia Skin: Negative Neurological: Negative All Other Systems Reviewed And Are Negative: Yes Physical Exam Triage Information Reviewed: Yes Vital Signs On Initial Exam: Initial Vitals Temp Pulse Resp BP Pulse Ox 97.6 F 91 22 135/87 99 01/18/19 08:59 01/18/19 08:59 01/18/19 08:59 01/18/19 08:59 01/18/19 08:59 Vital Signs Reviewed: Yes Appearance: Positive: Well-Appearing - Pt. sitting up in bed in NAD. Family member present. Skin: Positive: Warm, Dry Head/Face: Positive: Normal Head/Face Inspection Eyes: Positive: Normal, EOMI, CLIF Neck: Positive: Supple Respiratory/Lung Sounds: Positive: Other - Diffuse inspiratory and expiratory wheeze. No accessory muscle use, stridor or retractions. Cardiovascular: Positive: Normal, RRR Abdomen Description: Positive: Nontender, Soft Musculoskeletal: Negative: Edema Left, Edema Right Neurological: Positive: Normal, CN Intact II-III Psychiatric: Positive: Affect/Mood Appropriate Diagnostics - Vital Signs Vital Signs Temp Pulse Resp BP Pulse Ox 01/18/19 08:59 97.6 F 91 22 135/87 99 - Laboratory Result Diagrams: 01/18/19 09:46 01/18/19 09:46 Lab Statement: Any lab studies that have been ordered have been reviewed, and results considered in the medical decision making process. Course/Dx - Course Course Of Treatment: Patient presenting with complaints of cough, wheeze and hyperglycemia. He is afebrile with stable vital signs. Oxygen saturation is 99 % room air which is normal. Patient given a DuoNeb treatment dose of oral prednisone. Basic labs and chest x-ray obtained. ECG done at 0945 shows a sinus rhythm of 88bpm, normal axis, no STEMI, similar to prior tracing. CXR per radiology is negative for acute findings per radiology. 1110: On re-exam pt. feeling a bit better and is breathing easier. On re-ascultation wheezing has greatly improved. Repeat accucheck after 2 L NSS 345. Pt. given 5u insulin. Labs show normal WBC, Na 130, Cl 95, Co2 21, anion gap 14, glucose 431, CRP 176. Pt. tolerating PO fluids and states he is hungry. Pt. comfortable with dc home. Will give rx for duoneb and prednisone. Advised pt. he needs to call PCP today for new rx for lantus and schedule close f.u apt. to discussed better management of asthma and DM. Will return to ER if sxs change or worsen. - Diagnoses Differential Diagnosis/HQI/PQRI: Positive: Asthma, VT, Pneumonia Provider Diagnoses: Asthma exacerbation, Uncontrolled diabetes mellitus Discharge - Sign-Out/Discharge Documenting (check all that apply): Patient Departure Patient Received Moderate/Deep Sedation with Procedure: No - Discharge Plan Condition: Improved Disposition: HOME Prescriptions: Albuterol/Ipratropium NEB.BEBETO* [Duoneb (Albuterol 2.5 MG/Ipratropium 0.5 MG)] 1 neb INH Q6H PRN #30 neb.bebeto PRN Reason: Wheezing predniSONE TAB* [Deltasone 20 MG TAB*] 40 mg PO DAILY #10 tab Patient Education Materials: Asthma (ED), Diabetic Hyperglycemia (ED) Referrals: Paul Doss MD [Primary Care Provider] - Additional Instructions: Call PCP today for a close follow up appointment to discuss management of your diabetes and asthma Medication as directed Return to ER if symptoms change or worsen - Billing Disposition and Condition Condition: IMPROVED Disposition: Home
--- OUTSIDE RECORDS SUMMARY | 2019-01-18 09:51 | XMS REPORT | Continuity of Care Document ---
:1980 External Reference #:[id number] Author Name Cara Awan NP Address [address] [facility] [place] [address] Care Team Providers Name Role Phone Paul Doss MD Care Team Information Phlebotomist Associate Unavailable Paul Doss MD Primary Care Physician Unavailable Payers Date Identification Numbers Payment Provider Subscriber Effective: 2018 Policy Number: [id number] /[facility] Mathew Fraser PayID: [id number] [address] [address] [place] [address] Policy Number: [id number] Medicaid [place] Mathew Fraser PayID: [id number] [address] [facility] [place] [address] Effective: 2018 Policy Number: [id number] [facility] Mathew Fraser Expires: 2018 PayID: [id number] [address] [address] [place] [address] Advance Directives Description No Information Available Problems Description No Information Family History Description No Information Available Social History Type Date Description Comments Sex Unknown Tobacco Use Start: Unknown Nonsmoker Smoking Status Reviewed: 11/14/18 Nonsmoker Allergies, Adverse Reactions, Alerts Active Allergies Reaction Severity Comments Date Morphine 07/27/2018 Garlic Powder 07/27/2018 Sweet Potatoes 07/27/2018 Medications Active Medications SIG Qnty Indications Ordering Date Provider Ondansetron HCL take one by mouth 15tabs R11.10 Cara Padron 12/28/2018 every 4-6 hours as MAGEN Awan 4mg Tablets needed for vomiting BD Pen use once a day with 100units Paul Douglas 12/02/2018 Needle/Original/Ul edmundtus daja Doss MD tra-Fine/29G X 12.7mm 29G X 12.7mm Misc Lantus Solostar 50 units injected 15ml E11.8 Cara Padron 11/16/2018 subcutaneously at MAGEN Awan 100Unit/ML bedtime Solution Pen-Inject Ventolin HFA take 1-2 puffs 18gm J45.20 Cara C. 11/16/2018 inhaled every 4 hours MAGEN Awan 108(90Base) as needed for mcg/Act Aerosol wheezing or tightness in the chest Acetaminophen-Code take one by mouth 20tabs J09.x9 Cara Morales. 11/16/2018 ine #3 every 6 hours as MAGEN Awan 300-30mg needed for cough. may Tablets take 2 as one dose at bedtime. Omeprazole 1 by mouth every day 30caps Paul Douglas 10/27/2018 20mg MD Selam Capsules DR Sellers ER one by mouth in in 90tabs Paul Douglas 08/03/2018 10mg the morning MD Selam Tablets ER 24HR Metformin HCL Take 2 Tablets By 180tabs Paul Douglas Mouth Twice A Day MD Selam 500mg Tablets Claritin use 1 by mouth q.d 90caps Cara C. 10mg MAGNE Awan Capsules Albuterol Sulfate as directed Unknown 1.25mg/3ML Nebulizer History Medications Vick Abad take 2 tablets 30caps J09.x9 Kita Artis 11/14/2018 - every 8 hours as MAGEN Chavez 12/21/2018 100mg Capsules needed for cough Tamiflu 1 by mouth twice 10caps R50.9 Kita Artis 11/06/2018 - 75mg a day MAGEN Chavez 12/21/2018 Capsules Omeprazole 1 by mouth every Shantel [place], - 10mg day M.D. 10/27/2018 Capsules Immunizationtony Description No Information Available Vital Signs Date Vital Result Comment 12/28/2018 8:10am BP Systolic 128 mmHg BP Diastolic 90 mmHg Heart Rate 82 /min Body Temperature 97.5 F Respiratory Rate 17 /min O2 % BldC Oximetry 97 % Ra Weight 231.00 lb 12/21/2018 10:08am BP Systolic 118 mmHg BP Diastolic 74 mmHg Heart Rate 92 /min Body Temperature 98.2 F Respiratory Rate 17 /min Weight 234.00 lb 11/30/2018 10:21am BP Systolic 158 mmHg BP Diastolic 80 mmHg Heart Rate 114 /min Body Temperature 97.0 F O2 % BldC Oximetry 97 % 11/16/2018 10:35am BP Systolic 122 mmHg BP Diastolic 76 mmHg Heart Rate 88 /min Body Temperature 98.8 F Respiratory Rate 16 /min Height 68.75 inches 5'8.75" Weight 254.00 lb BMI (Body Mass Index) 37.8 kg/m2 11/14/2018 10:59am BP Systolic 136 mmHg BP Diastolic 76 mmHg Heart Rate 78 /min Body Temperature 97.9 F Respiratory Rate 18 /min Height 68.75 inches 5'8.75" Weight 255.00 lb BMI (Body Mass Index) 37.9 kg/m2 11/06/2018 10:01am BP Systolic 120 mmHg BP [...] Date Facility Test Result H/L Range Note Laboratory test 11/30/2018 [facility] [place] Point of Care 226 mg/dL High 70-100 1 finding Glucose Venous Blood Gas 11/30/2018 [facility] Venous Blood pH 7.31 Low 7.32-7.43 Venous Pco2 55 mmHg High 41-51 Venous Po2 < 38.0 mmHg N 35-45 Venous O2 Saturation 32.5 % Low 70-80 Venous Blood Base Excess 0.4 mmol/L N 0.0-4.0 2 Venous Bicarbonate Hco3 23.5 mmol/L Low 24-28 CBC Auto Diff 11/30/2018 [facility] [facility] White Blood Count 5.0 10^3/uL N 3.5-10.8 Red Blood Count 5.34 10^6/uL N 4.18-5.48 Hemoglobin 14.7 g/dL N 14.0-18.0 Hematocrit 45 % N 36-46 Mean Corpuscular Volume 84 fL N 80-94 Mean Corpuscular Hemoglobin 28 pg N 27-31 Mean Corpuscular HGB Conc 33 g/dL N 31-36 Red Cell Distribution Width 14 % N 10.5-15 Platelet Count 216 10^3/uL N 150-450 Mean Platelet Volume 8.2 fL N 7.4-10.4 Abs Neutrophils 3.3 10^3/uL N 1.5-7.7 Abs Lymphocytes 1.2 10^3/uL N 1.0-4.8 Abs Monocytes 0.4 10^3/uL N 0-0.8 Abs Eosinophils 0 10^3/uL N 0-0.6 Abs Basophils 0.1 10^3/uL N 0-0.2 Abs Nucleated RBC 0 10^3/uL Granulocyte % 65.3 % Lymphocyte % 24.2 % Monocyte % 8.3 % Eosinophil % 0.9 % Basophil % 1.3 % Nucleated Red Blood Cells % 0.1 Comp Metabolic Panel 11/30/2018 [facility] [place] Sodium 135 mmol/L N 135-145 Chloride 102 mmol/L N 101-111 Co2 Carbon Dioxide 26 mmol/L N 22-32 Glucose 434 mg/dL High 70-100 Blood Urea Nitrogen 9 mg/dL N 6-24 Creatinine 0.82 mg/dL N 0.67-1.17 BUN/Creatinine Ratio 11.0 N 8-20 Calcium 8.6 mg/dL N 8.6-10.3 Total Protein 6.6 g/dL N 6.4-8.9 Albumin 3.6 g/dL N 3.2-5.2 Globulin 3.0 g/dL N 2-4 Albumin/Globulin Ratio 1.2 N 1-3 Total Bilirubin 0.40 mg/dL N 0.2-1.0 Alkaline Phosphatase 154 U/L High 34-104 Alt 10 U/L N 7-52 Egfr Non- 105.1 >60 Egfr 127.2 >60 3 Potassium 5.2 mmol/L High 3.5-5.0 Anion Gap 7 mmol/L N 2-11 Ast 11 U/L Low 13-39 Laboratory test finding 11/30/2018 [facility] Point of Care > 444 mg/dL High 70- 100 4 Glucose Laboratory test finding 11/13/2018 [facility] [place] [place] Point of Care 265 mg/dL High 70- 100 5 Glucose CBC Auto Diff 11/13/2018 [facility] White Blood Count 8.4 10^3/uL N 3.5-10.8 Red Blood Count 5.63 10^6/uL High 4.18-5.48 Hemoglobin 15.6 g/dL N 14.0-18.0 Hematocrit 47 % High 36-46 Mean Corpuscular Volume 83 fL N 80-94 Mean Corpuscular Hemoglobin 28 pg N 27-31 Mean Corpuscular HGB Conc 33 g/dL N 31-36 Red Cell Distribution Width 14 % N 10.5-15 Platelet Count 217 10^3/uL N 150-450 Mean Platelet Volume 8.3 fL N 7.4-10.4 Abs Neutrophils 5.3 10^3/uL N 1.5-7.7 Abs Lymphocytes 2.2 10^3/uL N 1.0-4.8 Abs Monocytes 0.7 10^3/uL N 0-0.8 Abs Eosinophils 0.1 10^3/uL N 0-0.6 Abs Basophils 0.1 10^3/uL N 0-0.2 Abs Nucleated RBC 0 10^3/uL Granulocyte % 62.4 % Lymphocyte % 26.1 % Monocyte % 8.5 % Eosinophil % 1.6 % Basophil % 1.4 % Nucleated Red Blood Cells % 0.2 Venous Blood Gas 11/13/2018 [facility] [place] Venous Blood pH 7.38 N 7.32-7.43 Venous Pco2 50 mmHg N 41-51 Venous Po2 < 38.0 mmHg N 35-45 Venous O2 Saturation 53.3 % Low 70-80 Venous Blood Base Excess 3.4 mmol/L N 0.0-4.0 6 Venous Bicarbonate Hco3 26.3 mmol/L N 24-28 Urinalysis Profile 11/13/2018 [facility] [place] Urine Color Straw Urine Appearance Clear Urine Specific [place] 1.032 High 1.010-1.030 Urine pH 6.0 N 5-9 Urine Urobilinogen Negative Negative Urine Ketones 1+ Abnormal Negative Urine Protein Negative Negative Urine Leukocytes Negative Negative Urine Blood Negative Negative Urine Nitrite Negative Negative Urine Bilirubin Negative Negative Urine Glucose 3+(>=500 mg/dL) Abnormal Negative Comp Metabolic Panel 11/13/2018 [facility] Sodium 132 mmol/L Low 135-145 Potassium 4.8 mmol/L N 3.5-5.0 Chloride 97 mmol/L Low 101-111 Co2 Carbon Dioxide 27 mmol/L N 22-32 Anion Gap 8 mmol/L N 2-11 Glucose 418 mg/dL High 70-100 Blood Urea Nitrogen 6 mg/dL N 6-24 Creatinine 0.84 mg/dL N 0.67-1.17 BUN/Creatinine Ratio 7.1 Low 8-20 Calcium 9.4 mg/dL N 8.6-10.3 Total Protein 7.4 g/dL N 6.4-8.9 Albumin 4.1 g/dL N 3.2-5.2 Globulin 3.3 g/dL N 2-4 Albumin/Globulin Ratio 1.2 N 1-3 Total Bilirubin 0.60 mg/dL N 0.2-1.0 Alkaline Phosphatase 134 U/L High 34-104 Alt 12 U/L N 7-52 Ast 12 U/L Low 13-39 Egfr Non- 102.3 >60 Egfr 123.7 >60 7 Laboratory test finding 11/13/2018 [facility] Creatine Kinase(CK) 56 U/L N 10- 223 C Reactive Protein 152.12 mg/L High <8.01 Influenza A&B-fma 11/06/2018 [facility] Influenza A neg (607)- - Influenza B pos Laboratory test finding 11/06/2018 [facility] Quickstrep neg Negative (607)- - Glucose Fingerstick (Fma) 362 mg/dL High 70-105 Hemoglobin A1c 11/06/2018 [facility] Hemoglobin A1c >15.5 % High 4.8-5.6 8 [address] [place] [address] (607)- - 1 Fiber Analyst: [id number] 2 Reference ranges based on room air. 3 Because ethnic data is not always readily available, this report includes an eGFR for both -Americans and non- Americans. The National Kidney Disease Education Program (NKDEP) does not endorse the use of the MDRD equation for patients that are not between the ages of 18 and 70, are , have extremes of body size, muscle mass, or nutritional status, or are non- or non-. According to the National Kidney Foundation, irrespective of diagnosis, the stage of the disease is based on the level of kidney function: Stage Description GFR(mL/min/1.73 m(2)) 1 Kidney damage with normal or decreased GFR 90 2 Kidney damage with mild decrease in GFR 60-89 3 Moderate decrease in GFR 30-59 4 Severe decrease in GFR 15-29 5 Kidney failure <15 (or dialysis) 4 Fiber Analyst: [id number] 5 Fiber Analyst: [id number] 6 Reference ranges based on room air. 7 Because ethnic data is not always readily available, this report includes an eGFR for both -Americans and non- Americans. The National Kidney Disease Education Program (NKDEP) does not endorse the use of the MDRD equation for patients that are not between the ages of 18 and 70, are , have extremes of body size, muscle mass, or nutritional status, or are non- or non-. According to the National Kidney Foundation, irrespective of diagnosis, the stage of the disease is based on the level of kidney function: Stage Description GFR(mL/min/1.73 m(2)) 1 Kidney damage with normal or decreased GFR 90 2 Kidney damage with mild decrease in GFR 60-89 3 Moderate decrease in GFR 30-59 4 Severe decrease in GFR 15-29 5 Kidney failure <15 (or dialysis) 8 Verified by repeat analysis Prediabetes: 5.7 - 6.4 Diabetes: >6.4 Glycemic control for adults with diabetes: <7.0 Procedures Date Code Description Status 10/02/2018 70544 Remove Impact Cerumen Irrigati Completed Encounters Type Date Location Provider Dx Diagnosis Office Visit 12/21/2018 Main Office Paul Douglas E11.8 Type 2 diabetes 10:40a MD Selam mellitus with unspecified complications Office Visit 11/30/2018 Main Office Shantel Bradford, T78.00xA Anaphylactic reaction 12:30p M.D. 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 E11.8 Type 2 diabetes mellitus with unspecified complications J45.20 Mild intermittent asthma, uncomplicated Office Visit 11/14/2018 10:45a Main Office Kita Artis E11.8 Type 2 diabetes MAGEN Chavez mellitus with unspecified complications J09.x9 Flu due to ident novel influenza A virus w oth manifest J45.20 Mild intermittent asthma, uncomplicated Office Visit 11/06/2018 10:15a Main Office Kita Artis R50.9 Fever, unspecified ChavezMAGEN E11.8 Type 2 diabetes mellitus with unspecified complications Office Visit 10/02/2018 5:20p Main Office Kita Artis H61.21 Impacted cerumen, Scott ELECTRODE CLEANING MACHINE OPERATOR right ear Office Visit 07/27/2018 11:30a Main Office Paul Douglas E11.8 Type 2 diabetes MD Selam mellitus with unspecified complications Plan of Treatment Future Appointment(s):03/23/2019 9:00 am - Paul Doss MD at Main [facility]6012/28/2018 - Cara Awan NPB34.9 Viral infection, lzrssvopqzwN32.10 Vomiting, unspecifiedNew Medication:Ondansetron HCL 4 mg - take one by mouth every 4-6 hours as needed for vomitingComments:Keep drinking qiwyiM78.2 Cramp and spasmComments:Rest and fluids. You can use nausea medicaion.AllComments:1. Patient has been queried about patient's goals/ preferences and functional/lifestyle goals at relevant visits. If relevant, describe: Has been discussed, noted above2. Treatment goals as explainedto the patient: see above3. Are there barriers to meeting treatment goals? Yes If Yes, please describe: Barriers include possible insurance limits, disease process, and difficulty with lifestyle changes4. Self-Management goals as described to the patient: Yes, see above As always, we strongly encourage a healthy diet and making physical activity a part of your every day life. If you have questions about how or where to start, please contact the office.
--- OUTSIDE RECORDS SUMMARY | 2019-01-18 09:51 | XMS REPORT | Continuity of Care Document ---
:1980 External Reference #:[id number] Author Name Paul Doss MD Address [address] [facility] [place] [address] Care Team Providers Name Role Phone Paul Doss MD Care Team Information Oncology Specialist Unavailable Paul Doss MD Primary Care Physician Unavailable Payers Date Identification Numbers Payment Provider Subscriber Effective: 2018 Policy Number: [id number] BC/BS [facility] Mathew Fraser PayID: [id number] [address] [address] [place] [address] Policy Number: [id number] Medicaid [place] Mathew Fraser PayID: [id number] [address] [facility] [place] [address] Effective: 2018 Policy Number: [id number] [facility] Mathew Fraser Expires: 2018 PayID: [id number] [address] [address] [place] [address] Advance Directives Description No Information Available Problems Description No Information Family History Description No Information Available Social History Type Date Description Comments Sex Unknown Tobacco Use Start: Unknown Nonsmoker Smoking Status Reviewed: 11/14/18 Nonsmoker Allergies, Adverse Reactions, Alerts Active Allergies Reaction Severity Comments Date Morphine 07/27/2018 Garlic Powder 07/27/2018 Sweet Potatoes 07/27/2018 Medications Active Medications SIG Qnty Indications Ordering Date Provider BD Pen use once a day with 100units Paul Douglas 12/02/2018 Needle/Original/Ul david Doss MD tra-Fine/29G X 12.7mm 29G X 12.7mm Misc David Starkey 50 units injected 15ml E11.8 Cararosio Padron 11/16/2018 subcutaneously at MAGEN Awan 100Unit/ML bedtime Solution Pen-Inject Ventolin HFA take 1-2 puffs 18gm J45.20 Cara C. 11/16/2018 inhaled every 4 hours MAGEN Awan 108(90Base) as needed for mcg/Act Aerosol wheezing or tightness in the chest Acetaminophen-Code take one by mouth 20tabs J09.x9 Cara C. 11/16/2018 ine #3 every 6 hours as MAGEN Awan 300-30mg needed for cough. may Tablets take 2 as one dose at bedtime. Omeprazole 1 by mouth every day 30caps Paul T. 10/27/2018 20mg MD Selam Capsules DR Sellers ER one by mouth in in 90tabs Paul Douglas 08/03/2018 10mg the morning MD Selam Tablets ER 24HR Metformin HCL 2 tabs twice a day 360tabs [facility]. MD Selam 500mg Tablets Claritin use 1 by mouth q.d Unknown 10mg Capsules Albuterol Sulfate as directed Unknown 1.25mg/3ML Nebulizer History Medications Vick Abad take 2 tablets 30caps J09.x9 Kita Ann 11/14/2018 - every 8 hours as MAGEN Chavez 12/21/2018 100mg Capsules needed for cough Tamiflu 1 by mouth twice 10caps R50.9 Kita Steff 11/06/2018 - 75mg a day MAGEN Chvaez 12/21/2018 Capsules Omeprazole 1 by mouth every Shantel [place], - 10mg day M.D. 10/27/[address] Womack Description No Information Available Vital Signs Date Vital Result Comment 12/21/2018 10:08am BP Systolic 118 mmHg BP [...] Result H/L Range Note Laboratory test 11/30/2018 [facility] Point of Care 226 mg/dL High 70-100 1 finding Glucose Venous Blood Gas 11/30/2018 [facility] Venous Blood pH 7.31 Low 7.32-7.43 Venous Pco2 55 mmHg High 41-51 Venous Po2 < 38.0 mmHg N 35-45 Venous O2 Saturation 32.5 % Low 70-80 Venous Blood Base Excess 0.4 mmol/L N 0.0-4.0 2 Venous Bicarbonate Hco3 23.5 mmol/L Low 24-28 CBC Auto Diff 11/30/2018 [facility] White Blood Count 5.0 10^3/uL N 3.5-10.8 [...] Cells % 0.1 Comp Metabolic Panel 11/30/2018 [facility] Sodium 135 mmol/L N 135-145 Chloride 102 [...] U/L Low 13-39 Laboratory test finding 11/30/2018 [facility] Point of Care > 444 mg/dL High 70- 100 4 Glucose Laboratory test finding 11/13/2018 [facility] Point of Care 265 mg/dL High 70- 100 5 Glucose CBC Auto Diff 11/13/2018 [facility] White Blood Count 8.4 10^3/uL N 3.5-10.8 [...] Cells % 0.2 Venous Blood Gas 11/13/2018 [facility] Venous Blood pH 7.38 N 7.32-7.43 Venous Pco2 50 mmHg N 41-51 Venous Po2 < 38.0 mmHg N 35-45 Venous O2 Saturation 53.3 % Low 70-80 Venous Blood Base Excess 3.4 mmol/L N 0.0-4.0 6 Venous Bicarbonate Hco3 26.3 mmol/L N 24-28 Urinalysis Profile 11/13/2018 [facility] Urine Color Straw Urine Appearance Clear Urine Specific [place] 1.032 High 1.010-1.030 Urine pH 6.0 N 5-9 Urine Urobilinogen Negative Negative Urine Ketones 1+ Abnormal Negative Urine Protein Negative Negative Urine Leukocytes Negative Negative Urine Blood Negative Negative Urine Nitrite Negative Negative Urine Bilirubin Negative Negative Urine Glucose 3+(>=500 mg/dL) Abnormal Negative Comp Metabolic Panel 11/13/2018 [facility] Sodium 132 mmol/L Low 135-145 Potassium 4.8 [...] 152.12 mg/L High <8.01 Influenza A&B-fma 11/06/2018 [facility] Influenza A neg (607)- - Influenza B pos Laboratory test finding 11/06/2018 [facility] Quickstrep neg Negative (607)- - Glucose Fingerstick (Fma) 362 mg/dL High 70-105 Hemoglobin A1c 11/06/2018 [facility] Hemoglobin A1c >15.5 % High 4.8-5.6 8 [address] [place] [address] (607)- - 1 Mechanical Fitter: [id number] 2 Reference ranges based on room air. [...] 5 Kidney failure <15 (or dialysis) 4 Mechanical Fitter: [id number] 5 Mechanical Fitter: [id number] 6 Reference ranges based on room air. [...] <7.0 Procedures Date Code Description Status 10/02/2018 66924 Remove Impact Cerumen Irrigati Completed Encounters Type Date Location Provider Dx Diagnosis Office Visit 11/30/2018 Main Office Shantel Bradford, T78.00xA Anaphylactic reaction 12:30p M.D. 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 E11.8 Type 2 diabetes mellitus with unspecified complications J45.20 Mild intermittent asthma, uncomplicated Office Visit 11/14/2018 10:45a Main Office Kita Artis E11.8 Type 2 diabetes Chavez, COMPREHENSIVE ADVISOR mellitus with unspecified complications J09.x9 Flu due to ident novel influenza A virus w oth manifest J45.20 Mild intermittent asthma, uncomplicated Office Visit 11/06/2018 10:15a Main Office Kita Artis R50.9 Fever, unspecified Chavez, COMPREHENSIVE ADVISOR E11.8 Type 2 diabetes mellitus with unspecified complications Office Visit 10/02/2018 5:20p Main Office Kita Artis H61.21 Impacted cerumenScott COMPREHENSIVE ADVISOR right ear Office Visit 07/27/2018 11:30a Main Office Paul Douglas E11.8 Type 2 diabetes MD Selam mellitus with unspecified complications Plan of Treatment Future Appointment(s):03/23/2019 9:00 am - Paul Doss MD at Main [place]12/21/2018 - Paul Doss MDE11.8 Type 2 diabetes mellitus with unspecified complicationsFollow up:3 moAllComments:Medication Management Patient Understands medications he's taking? Yes No Are there Barriersto Adherence? Yes No Has the patient been asked about herbal supplements and therapies, and OTC meds? Yes No
[2019-01-18 09:55] LABS: ABS Basophils 0.1 10^3/ul (0-0.2); ABS Lymphocytes 0.9 10^3/ul (1.0-4.8); ABS Monocytes 0.8 10^3/ul (0-0.8); ABS Neutrophils 3.9 10^3/ul (1.5-7.7); Eosinophil % 0.3 %; Hematocrit 49 % (42-52); Hemoglobin 16.3 g/dL (14.0-18.0); Lymphocyte % 15.3 %; Mean Corpuscular HGB Conc 33 g/dL (31-36); Mean Corpuscular Hemoglobin 28 pg (27-31); Mean Corpuscular Volume 85 fL (80-94); Mean Platelet Volume 8.2 fL (7.4-10.4); Nucleated Red Blood Cells % 0.2; Platelet Count 173 10^3/uL (150-450); Red Blood Count 5.79 10^6 /uL (4.18-5.48); Red Cell Distribution Width 14 % (10.5-15); White Blood Count 5.7 10^3/uL (3.5-10.8)
[2019-01-18 10:13] LABS: Albumin/Globulin Ratio 1.1 (1-3); BUN/Creatinine Ratio 8.2 (8-20); C Reactive Protein 176.24 mg/L (<8.01); Calcium 9.3 mg/dL (8.6-10.3); EGFR African American 104.8 (>60); EGFR Non-African American 86.6 (>60); Globulin 3.8 g/dL (2-4); Potassium 4.3 mmol/L (3.5-5.0); Total Bilirubin 0.7 mg/dL (0.2-1.0); Total Protein 7.8 g/dL (6.4-8.9)
[2019-01-18 10:48] LABS: Urine Appearance Clear; Urine Bilirubin Negative (Negative); Urine Blood Negative (Negative); Urine Color Yellow; Urine Glucose 3+(>=500 mg/dL) (Negative); Urine Ketones 2+ (Negative); Urine Nitrite Negative (Negative); Urine Protein Negative (Negative); Urine Specific Gravity 1.029 (1.010-1.030); Urine Urobilinogen Negative (Negative)
[2019-01-18] MEDS ORDERED: Insulin REGULAR(*) 1 UNITS UNIT SUBCUT ONE (11:35)
[2019-01-18 13:08] VITALS: BP 142/77
== END 2019-01-18 13:08 | disposition home or self-care (01) ==
LOC: ED 08:58
DX: J45.901 Unspecified asthma with (acute) exacerbation (principal); E11.65 Type 2 diabetes mellitus with hyperglycemia; R94.31 Abnormal electrocardiogram [ECG] [EKG]; K21.9 Gastro-esophageal reflux disease without esophagitis; K57.90 Diverticulosis of intestine, part unspecified, without perforation or abscess without bleeding; Z88.5 Allergy status to narcotic agent; Z79.4 Long term (current) use of insulin; Z87.891 Personal history of nicotine dependence
CPT/HCPCS: 36415; 71046; 80053; 81003; 83605; 84484; 85025; 86140; 93005; 96360; 96361; 96372; 99282; A9270-GY; J7512

== ENCOUNTER 2019-07-01 09:55 | Emergency (ER) | payer BC, MEDICAID ==
[2019-07-01 11:19] LABS: ABS Basophils 0.1 10^3/ul (0-0.2); ABS Eosinophils 0.1 10^3/ul (0-0.6); ABS Lymphocytes 3.1 10^3/ul (1.0-4.8); ABS Monocytes 0.4 10^3/ul (0-0.8); ABS Neutrophils 1.9 10^3/ul (1.5-7.7); Eosinophil % 2.3 %; Hematocrit 44 % (42-52); Hemoglobin 14.6 g/dL (14.0-18.0); Lymphocyte % 54.8 %; Mean Corpuscular HGB Conc 33 g/dL (31-36); Mean Corpuscular Hemoglobin 28 pg (27-31); Mean Corpuscular Volume 85 fL (80-94); Mean Platelet Volume 7.9 fL (7.4-10.4); Nucleated Red Blood Cells % 0.2; Platelet Count 210 10^3/uL (150-450); Red Blood Count 5.23 10^6 /uL (4.18-5.48); Red Cell Distribution Width 15 % (10-15); White Blood Count 5.6 10^3/uL (3.5-10.8)
[2019-07-01 11:48] LABS: Albumin 4.1 g/dL (3.2-5.2); Albumin/Globulin Ratio 1.3 (1-3); BUN/Creatinine Ratio 17.4 (8-20); Calcium 9.2 mg/dL (8.6-10.3); EGFR African American 86.1 (>60); EGFR Non-African American 71.2 (>60); Globulin 3.1 g/dL (2-4); Total Bilirubin 0.4 mg/dL (0.2-1.0); Total Protein 7.2 g/dL (6.4-8.9)
[2019-07-01 11:50] LABS: Troponin I 0.01 ng/mL (<0.04)
[2019-07-01] MEDS ORDERED: Ibuprofen TAB* 800 MG PO ONE (11:58)
[2019-07-01] MEDS ORDERED: oxyCODONE/Acetamin 5/325 MG* TAB PO ONE (11:58)
--- NOTE | 2019-07-01 12:16 | ED ---
Neck Pain - HPI Summary HPI Summary: The pt is 38 year old male [facility] [place]/o left sided neck and back pain beginning 4 days [employer]. He states that he was attempting to fall asleep and experienced a muscle spasm that caused immediate neck pain and left sided back pain. He states that the left sided back pain is aggravated by movement and that he feels some numbness/tingling in his arms at times with severe pain. 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 Hx similar prior episode thought to be MSK in nature. He rates his current pain severity a 9/10. He notes that pain medications do help slightly. He also denies fever. He has Hx of DM. - History of Current Complaint Chief Complaint: EDBackInjuryPain Stated Complaint: LEFT SIDE NUMBNESS/PAIN PER PT Time Seen by Provider: 07/01/19 10:35 Hx Obtained From: Patient Onset/Duration Of Injury/Symptoms: Days Timing: Constant, Lasting Days Onset/Duration: Sudden Onset, Started days ago, Still Present Severity Initially: Severe Severity Currently: Severe Pain Intensity: 9 Pain Scale Used: 0-10 Numeric Location: Discrete At: - left sided back/neck Aggravating Factors: Movement Alleviating Factors: Other: - pain medication Associated Signs & Symptoms: Positive: Negative. Negative: Fever - Allergies/Home Medications Allergies/Adverse Reactions: Allergies Allergy/AdvReac Type Severity Reaction Status Date / Time garlic Allergy Hives Verified 07/01/19 10:00 morphine Allergy Hives Verified 07/01/19 10:00 sweet potato Allergy Hives Verified 07/01/19 10:00 PMH/Surg Hx/FS Hx/Imm Hx Endocrine/Hematology History: Reports: Hx Diabetes Denies: Hx Anticoagulant Therapy Cardiovascular History: Reports: Hx Hypertension, Other Cardiovascular Problems/ Disorders - DIABETIC Respiratory History: Reports: Hx Asthma Denies: Hx Chronic Obstructive Pulmonary Disease (COPD) GI History: Reports: Hx Diverticulosis, Hx Gastroesophageal Reflux Disease - Surgical History Surgery Procedure, Year, and Place: ED NOTES: LLQ abdominal pain. passing [place] and had a b.m. without improvement. denies med/surg abdominal hx. [ End ] Infectious Disease History: No Infectious Disease History: Denies: History Other Infectious Disease, Traveled Outside the [place] in Last 30 Days - Family History Known Family History: Positive: Diabetes, Other - ULCERS, CANCER Family History: colon cancer - Social History Alcohol Use: Daily Alcohol Amount: 1 drink daily Hx Substance Use: Yes Substance Use Type: Reports: Marijuana Substance Use Comment - Amount & Last Used: daily Hx Tobacco Use: Yes Smoking Status (MU): Former Smoker Review of Systems Negative: Fever Musculoskeletal: Other - pos - neck/back pain Positive: Numbness - and tingling in arms All Other Systems Reviewed And Are Negative: Yes Physical Exam - Summary Physical Exam Summary: Constitutional: Well-developed, Well-nourished, Alert. (-) Distressed Skin: Warm, Dry HENT: Normocephalic; Atraumatic Eyes: Conjunctiva normal Neck: Pain w ROM L>R, (-) JVD, (-) Stridor, (-) Nuchal rigidity Cardio: Rhythm regular, rate normal, Heart sounds normal; Intact distal pulses; Radial pulses are 2+ and symmetric. (-) Murmur Pulmonary/Chest wall: Effort normal. (-) Respiratory distress, (-) Wheezes, (-) Rales Abd: Soft, (-) tenderness, (-) Distension, (-) Guarding, (-) Rebound Musculoskeletal: (-) Edema, tenderness of the left paraspinal cervical spine, left trapezius, left scapula, and left thoracic spine. No midline CTL tenderness Lymph: (-) Cervical adenopathy Neuro: Alert, Oriented x3, SILT. Full ROM L arm/hand/elbow, pain w ROM L shoulder. Psych: Mood and affect Normal Triage Information Reviewed: Yes Vital Signs On Initial Exam: Initial Vitals Temp Pulse Resp BP Pulse Ox 97.9 F 72 16 147/89 97 07/01/19 09:59 07/01/19 09:59 07/01/19 09:59 07/01/19 09:59 07/01/19 09:59 Vital Signs Reviewed: Yes Procedures - Sedation Patient Received Moderate/Deep Sedation with Procedure: No - Lumbar Puncture Lumbar Paraspinals Aseptic Technique: Lidocaine - 5 CCs Spinal Needle Used: 22 Gauge Lumbar Puncture Note: Attempted at L4 and L5. Extracted 4 tubes of clear fluid. Diagnostics - Vital Signs Vital Signs Temp Pulse Resp BP Pulse Ox 07/01/19 12:07 16 07/01/19 11:00 69 99 07/01/19 10:33 70 136/92 98 07/01/19 10:31 68 98 07/01/19 09:59 97.9 F 72 16 147/89 97 - Laboratory Lab Results: Lab Results 07/01/19 07/01/19 Range/Units 11:09 11:10 WBC 5.6 (3.5-10.8) 10^3/uL RBC 5.23 (4.18-5.48) 10^6 /uL Hgb 14.6 (14.0-18.0) g/dL Hct 44 (42-52) % MCV 85 (80-94) fL MCH 28 (27-31) pg MCHC 33 (31-36) g/dL RDW 15 (10-15) % Plt Count 210 (150-450) 10^3/uL MPV 7.9 (7.4-10.4) fL Neut % (Auto) 34.1 % Lymph % (Auto) 54.8 % [place] % (Auto) 7.6 % Eos % (Auto) 2.3 % Baso % (Auto) 1.2 % Absolute Neuts (auto) 1.9 (1.5-7.7) 10^3/ul Absolute Lymphs (auto) 3.1 (1.0-4.8) 10^3/ul Absolute Monos (auto) 0.4 (0-0.8) 10^3/ul Absolute Eos (auto) 0.1 (0-0.6) 10^3/ul Absolute Basos (auto) 0.1 (0-0.2) 10^3/ul Absolute Nucleated RBC 0.0 10^3/ul Nucleated RBC % 0.2 Sodium 139 (135-145) mmol/L Potassium Pending Chloride 105 (101-111) mmol/L Carbon Dioxide 29 (22-32) mmol/L Anion Gap Pending BUN 20 (6-24) mg/dL Creatinine 1.15 (0.67-1.17) mg/dL Est GFR ( Amer) 86.1 (>60) Est GFR (Non-Af Amer) 71.2 (>60) BUN/Creatinine Ratio 17.4 (8-20) Glucose 181 H (70-100) mg/dL Calcium 9.2 (8.6-10.3) mg/dL Total Bilirubin 0.40 (0.2-1.0) mg/dL AST Pending ALT 11 (7-52) U/L Alkaline Phosphatase 88 (34-104) U/L Troponin I 0.01 (<0.04) ng/mL C-Reactive Protein Pending Total Protein 7.2 (6.4-8.9) g/dL Albumin 4.1 (3.2-5.2) g/dL Globulin 3.1 (2-4) g/dL Albumin/Globulin Ratio 1.3 (1-3) Lipase 59 (11.0-82.0) U/L Result Diagrams: 07/01/19 11:10 07/01/19 11:09 Lab Statement: Any lab studies that have been ordered have been reviewed, and results considered in the medical decision making process. - Radiology CXR Radiology Interpretation Completed By: Radiologist Summary of Radiographic Findings: IMPRESSION: NO ACTIVE CARDIOPULMONARY DISEASE. ED Physician has reviewed this report. - EKG 1037 Cardiac Rate: NL EKG Rhythm: Sinus Rhythm - 63 bpm Summary of EKG Findings: EKG at 1037 reveals SR @ 63 bpm, mild diffuse ST elevation, Twave inversions in lead 3, unchanged from prior ekg on 04/14/19. Neck Course/Dx - Course Course Of Treatment: 38-year-old male with a history of diabetes and hypertension who presents with left scapular and paraspinal neck pain. Physical exam well-appearing, no signs of infection, afebrile. Tenderness of the trapezius and pain with range of motion, no midline CTL tenderness. SILT. Pain is atraumatic, suspect musculoskeletal strain as patient uses arm often during work. Labs notable for normal CRP no white count no signs of infection. Patient was given pain control, lidocaine injection ear pain and lidocaine patch. Patient reports pain is better. Patient denies chest pain, EKG is unchanged troponin is negative. Chest x-ray did not show any acute process. Suspect secondary to musculoskeletal cause advised to follow for worsening symptoms - Diagnoses Provider Diagnoses: Trapezius muscle strain Discharge ED - Sign-Out/Discharge Documenting (check all that apply): Patient Departure - discharge - Discharge Plan Condition: Stable Disposition: HOME Prescriptions: Cyclobenzaprine TAB* [Flexeril 10 MG TAB*] 10 mg PO TID PRN 4 Days #12 tab PRN Reason: Pain - Moderate Ibuprofen TAB* [Motrin TAB* 800 MG] 800 mg PO Q6H 10 Days #30 tab Patient Education Materials: Muscle Strain (ED) Forms: *Work Release Referrals: Paul Doss MD [Primary Care Provider] - 3 Days Additional Instructions: You were seen in the emergency department for shoulder neck pain. You likely have a musculoskeletal strain. Please take Motrin 800 mg every 8 hours as needed, Flexeril at night for pain. You can use a lidocaine patch daily. If any studies were not completed at the time of discharge you will be called with the relevant results. Please follow up with your primary care doctor in next 2-3 days and return to emergency department for worsening pain, numbness or weakness of your arms, fevers, or concerning symptoms. It was a pleasure taking care of you today. - Billing Disposition and Condition Condition: STABLE Disposition: Home - Attestation Statements Document Initiated by Sal: Yes Documenting Scribe: Jae Dickerson Provider For Whom Sal is Documenting (Include Credential): Anjel Ramos MD Scribe Attestation: IJae, scribed for Anjel Ramos MD on 07/01/19 at 1749. Scribe Documentation Reviewed: Yes Provider Attestation: The documentation as recorded by the Jae hennessy accurately reflects the service I personally performed and the decisions made by , Anjel Ramos MD Status of Scribe Document: Viewed
[2019-07-01 12:19] LABS: C Reactive Protein 6.21 mg/L (<8.01)
[2019-07-01 12:27] LABS: Potassium 4.6 mmol/L (3.5-5.0)
[2019-07-01] MEDS ORDERED: Lidocaine 1% INJ* 10 MG/ML 30 ML SDV INJ ONE (13:04)
[2019-07-01 13:46] VITALS: BP 132/93
[2019-07-01] MEDS ORDERED: Lidocaine Patch REMOVE* 1 NOTE MISC SCH (21:00)
[2019-07-02] MEDS ORDERED: Lidocaine PATCH 5%* 1 PATCH TRANSDERM SCH (09:00)
[2019-07-02] MEDS ORDERED: Lidocaine PATCH 5%* 1 PATCH TRANSDERM ONE (13:10)
== END 2019-07-01 13:40 | disposition home or self-care (01) ==
LOC: ED 09:55
DX: S46.812A Strain of other muscles, fascia and tendons at shoulder and upper arm level, left arm, initial encounter (principal); X58.XXXA Exposure to other specified factors, initial encounter; Y92.9 Unspecified place or not applicable; M54.2 Cervicalgia; R07.89 Other chest pain; R20.0 Anesthesia of skin; R20.2 Paresthesia of skin; E11.9 Type 2 diabetes mellitus without complications; I10 Essential (primary) hypertension; Z88.5 Allergy status to narcotic agent; Z91.018 Allergy to other foods; Z87.891 Personal history of nicotine dependence
CPT/HCPCS: 36415; 62270; 71046; 80053; 83690; 84484; 85025; 86140; 93005; 99283; A9270-GY